=== PATIENT | male | born 1955 | race African-American/Black ===

== ENCOUNTER 2016-09-14 06:43 | Emergency (ER) | payer MEDICAID ==
[~2016-09-14] VITALS: Ht 170.2 cm; Wt 73.0 kg
[~2016-09-14 06:43] MED LIST: ACET1TAB12 PO; ASPI-1159 PO; CLON0.1T PO; IBUP-1510 PO; IBUPROFEN 600 MG TAB; IPRA0.2S51 NEB; KEPP500 PO; LORA1TAB PO; ONDA4TAB5 PO; PHEN100C4 PO; TRAM50TA3 PO
[2016-09-14] MEDS ORDERED: SODIUM CHLORIDE 0.9% 1,000 ML IV ONE (07:15)
[2016-09-14 07:48] LABS: HEMATOCRIT. 36.9 % (42.0-52.0); HEMOGLOBIN. 12.9 g/dL (14.0-18.0); MEAN CORPUSCULAR HEMOGLOBIN 33.8 pg (28.0-32.0); MEAN CORPUSCULAR VOLUME 96.9 fL (80.0-94.0); MEAN PLATELET VOLUME 6.5 fl (7.4-10.4); PLATELET 287 x1000/uL (130-400); RED BLOOD CELL COUNT 3.81 mill/uL (4.7-6.1); RED CELL DISTRIBUTION WIDTH 13.3 % (11.6-14.6)
[2016-09-14 07:57] LABS: CHLORIDE 100 mEq/L (98-107)
[2016-09-14 08:06] LABS: CARBON DIOXIDE 27 mEq/L (21-32)
[2016-09-14 08:43] LABS: PLATELET ESTIMATE NORMAL
[2016-09-14 08:56] LABS: GLUCOSE URINE NEGATIVE (NEGATIVE); KETONES URINE NEGATIVE (NEGATIVE); LEUKOCYTE ESTERASE URINE NEGATIVE (NEGATIVE); NITRITE URINE NEGATIVE (NEGATIVE); OCCULT BLOOD URINE TRACE (NEGATIVE); PROTEIN URINE NEGATIVE (NEGATIVE); SPECIFIC GRAVITY URINE 1.007 (1.005-1.030); UROBILINOGEN URINE 0.2 E.U./dL (0.2-1.0)
[2016-09-14 09:08] LABS: CLARITY URINE CLEAR (CLEAR); COLOR URINE YELLOW (YELLOW)
[2016-09-14 11:30] VITALS: BP 107/63
== END 2016-09-14 12:08 | disposition home or self-care (01) ==
LOC: ER 06:57
DX: R53.1 Weakness (principal); R05 Cough; E07.9 Disorder of thyroid, unspecified; I10 Essential (primary) hypertension; Z89.612 Acquired absence of left leg above knee; Z79.82 Long term (current) use of aspirin
CPT/HCPCS: 36415; 80053; 81001; 85025; 93005; 96360; 99285; J7030; Z7610

== ENCOUNTER 2016-09-19 20:22 | Inpatient (IN) | payer MEDICAID ==
[~2016-09-19] VITALS: Ht 167.6 cm; Wt 68.0 kg
[2016-09-19] MEDS ORDERED: SODIUM CHLORIDE 0.9% 1000ML BAG (SEPSIS BOLUS) IV ONE (21:15)
[2016-09-19 21:30] LABS: BG BASE EXCESS 3.5 mmol/L (-2.0-2.0); BG CARBOXYHEMOGLOBIN 0.2 % (0.5-1.5); BG DEOXYHEMOGLOBIN 3.5 % (0.0-5.0); BG FRACTION INSPIRED OXYGEN 60; BG HCO3 ACT 28.6 mmol/L (22.0-26.0); BG OXYGEN SATURATION 96.5 % (92.0-98.5); BG OXYHEMOGLOBIN 96.3 % (94.0-97.0); BG PCO2 45.2 mmHg (35.0-45.0); BG PH 7.419 (7.350-7.450); BG PO2 90.3 mmHg (75.0-100.0); BG SAMPLE SITE LEFT RADIAL; BG TOTAL HEMOGLOBIN 13.5 g/dL (12.0-18.0); BG VENT MODE MASK - NRB
[2016-09-19 21:35] LABS: HEMOGLOBIN. 12.8 g/dL (14.0-18.0); MEAN CORPUSCULAR HEMOGLOBIN 33.5 pg (28.0-32.0); MEAN CORPUSCULAR VOLUME 96.4 fL (80.0-94.0); MEAN PLATELET VOLUME 6.3 fl (7.4-10.4); PLATELET 289 x1000/uL (130-400); RED BLOOD CELL COUNT 3.83 mill/uL (4.7-6.1); RED CELL DISTRIBUTION WIDTH 13.4 % (11.6-14.6)
[2016-09-19 21:40] LABS: INR 1.1; PROTHROMBIN TIME 11.2 sec
[2016-09-19 21:49] LABS: CARBON DIOXIDE 31 mEq/L (21-32); CHLORIDE 91 mEq/L (98-107); TROPONIN I < 0.02 ng/mL (0.00-0.04)
[2016-09-19 22:09] LABS: PLATELET ESTIMATE NORMAL
[2016-09-19] MEDS ORDERED: MORPHINE SULFATE 4 MG/ML CPJ (NOT FOR IM USE) IV ONE (22:15)
[2016-09-19] MEDS ORDERED: ONDANSETRON HCL 4MG/2ML VIAL IV ONE (22:15)
[2016-09-19 22:38] LABS: CLARITY URINE CLEAR (CLEAR); COLOR URINE YELLOW (YELLOW); GLUCOSE URINE NEGATIVE (NEGATIVE); KETONES URINE NEGATIVE (NEGATIVE); LEUKOCYTE ESTERASE URINE NEGATIVE (NEGATIVE); NITRITE URINE NEGATIVE (NEGATIVE); OCCULT BLOOD URINE TRACE (NEGATIVE); PROTEIN URINE NEGATIVE (NEGATIVE); SPECIFIC GRAVITY URINE 1.008 (1.005-1.030); UROBILINOGEN URINE 0.2 E.U./dL (0.2-1.0)
[2016-09-19] MEDS ORDERED: LEVOFLOXACIN 500MG PREMIX 100 ML IV ONE (23:45)
[2016-09-19] MEDS ORDERED: METRONIDAZOLE 500 MG PREMIX 100 ML IV ONE (23:45)
[2016-09-20] VITALS (7 sets, daily range): BP systolic 98–114; BP diastolic 61–72
[2016-09-20] MEDS ORDERED: ACETAMINOPHEN 325MG TABLET PO PRN ×2 (05:15→08:15)
[2016-09-20] MEDS ORDERED: MAGNESIUM CITRATE 300ML SOLUTION PO SCH (05:15)
[2016-09-20] MEDS ORDERED: MAGNESIUM/ALUMINUM HYDROXIDE/SIMETHICONE 30ML UDC PO PRN (08:15)
[2016-09-20] MEDS ORDERED: CLONIDINE 0.1MG TABLET PO PRN ×2 (08:15)
[2016-09-20] MEDS ORDERED: HYDROCODONE/ACETAMINOPHEN 5/325MG TABLET PO PRN (08:15)
[2016-09-20] MEDS ORDERED: IPRATROPIUM/ALBUTEROL 0.5-3(2.5)MG/3ML NEB INH PRN (08:15)
[2016-09-20] MEDS ORDERED: ACETAMINOPHEN WITH CODEINE 300/30MG TABLET PO SCH (08:15)
[2016-09-20] MEDS ORDERED: ACETAMINOPHEN 650MG/20.3ML UDC GT PRN (08:15)
[2016-09-20] MEDS ORDERED: TRAMADOL 50MG TABLET PO PRN (08:15)
[2016-09-20] MEDS ORDERED: ACETAMINOPHEN 650MG SUPP PR PRN (08:15)
[2016-09-20] MEDS ORDERED: ONDANSETRON HCL 4MG TABLET PO PRN (08:15)
[2016-09-20] MEDS ORDERED: NA PHOS,M-B/NA PHOS,DI-BA ENEMA 118ML PR PRN (08:15)
[2016-09-20] MEDS ORDERED: DIPHENHYDRAMINE 50MG/ML VIAL IV PRN (08:15)
[2016-09-20] MEDS ORDERED: IPRATROPIUM BROMIDE (0.02%) 0.5MG/2.5ML NEB HHN PRN (08:15)
[2016-09-20] MEDS ORDERED: IBUPROFEN 800MG TABLET PO SCH (08:15)
[2016-09-20] MEDS: ASPIRIN 81MG EC TABLET PO SCH (09:12)
[2016-09-20] MEDS: PHENYTOIN SODIUM EXTENDED 100MG CAPSULE PO SCH ×3 (09:12→18:00)
[2016-09-20] MEDS: LORAZEPAM 1MG TABLET PO SCH ×3 (09:13→18:42)
[2016-09-20] MEDS: LEVETIRACETAM 500MG TABLET PO SCH ×2 (09:13→18:00)
[2016-09-20 09:26] LABS: HEMATOCRIT. 36.4 % (42.0-52.0); HEMOGLOBIN. 12.5 g/dL (14.0-18.0); MEAN CORPUSCULAR HEMOGLOBIN 33.4 pg (28.0-32.0); MEAN CORPUSCULAR VOLUME 96.9 fL (80.0-94.0); MEAN PLATELET VOLUME 6.4 fl (7.4-10.4); PLATELET 285 x1000/uL (130-400); RED BLOOD CELL COUNT 3.75 mill/uL (4.7-6.1); RED CELL DISTRIBUTION WIDTH 13.4 % (11.6-14.6)
[2016-09-20 09:46] LABS: CARBON DIOXIDE 28 mEq/L (21-32); CHLORIDE 98 mEq/L (98-107)
[2016-09-20] MEDS: SODIUM CHLORIDE 0.45% 1,000 ML IV SCH ×2 (10:45→22:40)
[2016-09-20] MEDS: SODIUM CHLORIDE 0.9% INJ 3ML FLUSH IVF SCH ×2 (15:32→22:39)
[2016-09-20 17:54] LABS: PLATELET ESTIMATE NORMAL
[2016-09-20] MEDS ORDERED: MAGNESIUM CITRATE 300ML SOLUTION PO NR (22:00)
[2016-09-21] VITALS (7 sets, daily range): BP systolic 98–120; BP diastolic 56–71
[2016-09-21] MEDS: LORAZEPAM 1MG TABLET PO SCH ×4 (06:00→17:42)
[2016-09-21] MEDS: SODIUM CHLORIDE 0.9% INJ 3ML FLUSH IVF SCH ×2 (06:45→17:44)
[2016-09-21 07:21] LABS: HEMATOCRIT. 36.1 % (42.0-52.0); HEMOGLOBIN. 12.4 g/dL (14.0-18.0); MEAN CORPUSCULAR HEMOGLOBIN 33.4 pg (28.0-32.0); MEAN CORPUSCULAR VOLUME 96.9 fL (80.0-94.0); MEAN PLATELET VOLUME 6.6 fl (7.4-10.4); PLATELET 289 x1000/uL (130-400); RED BLOOD CELL COUNT 3.72 mill/uL (4.7-6.1); RED CELL DISTRIBUTION WIDTH 13.6 % (11.6-14.6)
[2016-09-21 07:31] LABS: CHLORIDE 101 mEq/L (98-107)
[2016-09-21 07:40] LABS: CARBON DIOXIDE 29 mEq/L (21-32); HDL CHOLESTEROL 81 mg/dL (40-59); LDL CHOLESTEROL 74 mg/dL (5-100)
[2016-09-21] MEDS: LEVETIRACETAM 500MG TABLET PO SCH ×2 (09:17→17:42)
[2016-09-21] MEDS: PHENYTOIN SODIUM EXTENDED 100MG CAPSULE PO SCH ×3 (09:17→17:42)
[2016-09-21] MEDS: ASPIRIN 81MG EC TABLET PO SCH (09:18)
[2016-09-21 09:52] LABS: PLATELET ESTIMATE NORMAL
[2016-09-21] MEDS: SODIUM CHLORIDE 0.45% 1,000 ML IV SCH (10:54)
[2016-09-25] MEDS ORDERED: LORA1TAB PO (01:49)
[2016-09-25] MEDS ORDERED: HYDR12.529 PO (01:50)
[2016-09-25] MEDS ORDERED: AMLO10TA80 PO (01:52)
[2016-09-25] MEDS ORDERED: ATOR10TA69 PO (01:53)
[2016-09-25] MEDS ORDERED: PHEN125O2 PO ×2 (01:55→01:57)
[2016-09-25] MEDS ORDERED: DOCU250C69 PO (02:00)
[2016-09-25] MEDS ORDERED: DOCU-150 PO (02:00)
[2016-09-25] MEDS ORDERED: IPRA3AMP IH (02:07)
[2016-09-25] MEDS ORDERED: HYDR-523 PO (02:09)
[2016-09-25] MEDS ORDERED: IBUP-1636 PO (02:12)
[2016-09-25] MEDS ORDERED: ACET-2178 PO (02:18)
== END 2016-09-21 20:00 | DRG 254 ==
LOC: ER 20:22 → 6EST 23:36 → ENRESERV 09-20 00:14 → ER 09-20 01:44
PROVIDERS: ADMIT Family Medicine; ATTEND Family Medicine
DX: K59.00 Constipation, unspecified (principal); Z89.612 Acquired absence of left leg above knee; J44.9 Chronic obstructive pulmonary disease, unspecified; I10 Essential (primary) hypertension; G40.909 Epilepsy, unspecified, not intractable, without status epilepticus; Z74.01 Bed confinement status; Z79.82 Long term (current) use of aspirin; Z79.899 Other long term (current) drug therapy
CPT/HCPCS: 36415; 36600; 71010; 71250; 74000; 74176; 80048; 80053; 80061; 81001; 82375; 82805; 82962; 83605; 83690; 83880; 84484; 85025; 85610; 85730; 86850; 86900; 87040; 87086; 93005; 96361; 96374; 96375; 99291; J1956; J2270; J2405; J3490; J7030

== ENCOUNTER 2016-10-10 03:31 | Emergency (ER) | payer MEDICAID ==
[~2016-10-10] VITALS: Ht 167.6 cm; Wt 65.9 kg
[~2016-10-10 03:31] MED LIST changes: +ACET-2178 PO; +AMLO10TA80 PO; +ATOR10TA69 PO; +DOCU-150 PO; +DOCU250C69 PO; +HYDR-523 PO; +HYDR12.529 PO; +IBUP-1636 PO; -IBUPROFEN 600 MG TAB; +IPRA3AMP IH; +PHEN125O2 PO
[2016-10-10] MEDS ORDERED: ACETAMINOPHEN 325MG TABLET PO ONE (04:00)
[2016-10-10 04:10] VITALS: BP 124/78
== END 2016-10-10 05:03 | disposition home or self-care (01) ==
LOC: ER 03:31
DX: M25.519 Pain in unspecified shoulder (principal); K21.9 Gastro-esophageal reflux disease without esophagitis; I10 Essential (primary) hypertension; Z79.82 Long term (current) use of aspirin; R56.9 Unspecified convulsions; Z89.622 Acquired absence of left hip joint
CPT/HCPCS: 93005; 99283; Z7610

== ENCOUNTER 2016-10-14 03:58 | Emergency (ER) | payer MEDICAID, OTHER ==
[~2016-10-14] VITALS: Ht 165.1 cm; Wt 69.0 kg
[2016-10-14 09:30] VITALS: BP 119/79
== END 2016-10-14 10:10 | disposition home or self-care (01) ==
LOC: ER 03:58
DX: R40.4 Transient alteration of awareness (principal); I10 Essential (primary) hypertension; Z79.82 Long term (current) use of aspirin
CPT/HCPCS: 99283; A4315

== ENCOUNTER 2016-10-14 10:32 | Emergency (ER) | payer MEDICAID, OTHER ==
[~2016-10-14] VITALS: Ht 152.4 cm; Wt 69.0 kg
[2016-10-14 11:18] LABS: CHLORIDE 100 mEq/L (98-107)
[2016-10-14 11:19] LABS: HEMATOCRIT. 38.4 % (42.0-52.0); MEAN CORPUSCULAR HEMOGLOBIN 32.6 pg (28.0-32.0); MEAN CORPUSCULAR VOLUME 96.3 fL (80.0-94.0); PLATELET 411 x1000/uL (130-400); RED BLOOD CELL COUNT 3.98 mill/uL (4.7-6.1); RED CELL DISTRIBUTION WIDTH 14.3 % (11.6-14.6)
[2016-10-14 11:28] LABS: CARBON DIOXIDE 32 mEq/L (21-32); ETHANOL BLOOD < 10 mg/dL
[2016-10-14 12:16] LABS: PLATELET ESTIMATE INCREASED
[2016-10-14 16:35] VITALS: BP 141/86
== END 2016-10-14 17:10 | disposition home or self-care (01) ==
LOC: ER 11:51
DX: R40.4 Transient alteration of awareness (principal); I10 Essential (primary) hypertension; Z79.82 Long term (current) use of aspirin
CPT/HCPCS: 36415; 70450; 71010; 80053; 82962; 85025; 93005; 99285; G0482; Z7610; A4315

== ENCOUNTER 2016-11-02 21:34 | Inpatient (IN) | payer MEDICAID ==
[~2016-11-02] VITALS: Ht 167.6 cm; Wt 64.0 kg
[~2016-11-02 21:34] MED LIST changes: -IBUP-1510 PO; +IBUP-2030 PO; -IPRA3AMP IH; +IPRA3AMP9 IH
[2016-11-02] MEDS ORDERED: ONDANSETRON HCL 4MG/2ML VIAL IV STA (22:36)
[2016-11-02] MEDS ORDERED: SODIUM CHLORIDE 0.9% 1,000 ML IV ONE (22:36)
[2016-11-02] MEDS ORDERED: LORAZEPAM 2MG/ML CPJ IV ONE (22:45)
[2016-11-02 23:08] LABS: BASOPHILS % 0.2 % (0.0-2.0); EOSINOPHILS % 0.2 % (0.0-5.0); HEMATOCRIT. 35.4 % (42.0-52.0); HEMOGLOBIN. 12.2 g/dL (14.0-18.0); LYMPHOCYTES % 5.9 % (20.0-50.0); MEAN CORPUSCULAR HEMOGLOBIN 32.8 pg (28.0-32.0); MEAN PLATELET VOLUME 6.1 fl (7.4-10.4); MONOCYTES % 8.9 % (2.0-8.0); NEUTROPHILS % 84.8 % (40.0-76.0); PLATELET 367 x1000/uL (130-400); RED BLOOD CELL COUNT 3.73 mill/uL (4.7-6.1); RED CELL DISTRIBUTION WIDTH 14.5 % (11.6-14.6)
[2016-11-02 23:13] LABS: CHLORIDE 86 mEq/L (98-107)
[2016-11-02 23:17] LABS: CARBON DIOXIDE 26 mEq/L (21-32)
[2016-11-02] MEDS ORDERED: SODIUM CHLORIDE 0.9% 1,000 ML IV SCH (23:21)
[2016-11-02 23:24] LABS: TROPONIN I < 0.02 ng/mL (0.00-0.04)
[2016-11-03] VITALS (41 sets, daily range): BP systolic 49–139; BP diastolic 33–104
[2016-11-03] MEDS: LORAZEPAM 2MG/ML CPJ IV PRN ×2 (05:30→20:54)
[2016-11-03] MEDS ORDERED: ACETAMINOPHEN WITH CODEINE 300/30MG TABLET PO PRN (06:45)
[2016-11-03] MEDS ORDERED: CLONIDINE 0.1MG TABLET PO PRN ×2 (06:45→08:15)
[2016-11-03] MEDS ORDERED: HYDROCODONE/ACETAMINOPHEN 5/325MG TABLET PO PRN ×2 (06:45→08:15)
[2016-11-03] MEDS ORDERED: ONDANSETRON HCL 4MG/2ML VIAL IV PRN (07:00)
[2016-11-03] MEDS ORDERED: ACETAMINOPHEN 325MG TABLET PO PRN (07:00)
[2016-11-03] MEDS ORDERED: NA PHOS,M-B/NA PHOS,DI-BA ENEMA 118ML PR PRN (08:15)
[2016-11-03] MEDS ORDERED: DOCUSATE SODIUM 100MG CAPSULE PO PRN (08:15)
[2016-11-03] MEDS ORDERED: HYDROCODONE/ACETAMINOPHEN 10/325MG TABLET PO PRN (08:15)
[2016-11-03] MEDS ORDERED: IPRATROPIUM/ALBUTEROL 0.5-3(2.5)MG/3ML NEB INH PRN (08:15)
[2016-11-03] MEDS: LEVETIRACETAM 500MG TABLET PO SCH ×2 (08:36→18:43)
[2016-11-03] MEDS: ASPIRIN 81MG EC TABLET PO SCH (08:37)
[2016-11-03] MEDS: METOPROLOL TARTRATE 50MG TABLET PO SCH ×2 (08:37→21:00)
[2016-11-03] MEDS: DOCUSATE SODIUM 100MG CAPSULE PO SCH (08:37)
[2016-11-03] MEDS: AMLODIPINE 10MG TABLET PO SCH (08:38)
[2016-11-03] MEDS ORDERED: HYDROCHLOROTHIAZIDE 12.5MG CAPSULE PO SCH (09:00)
[2016-11-03] MEDS ORDERED: POTASSIUM CHLORIDE INJ 40 MEQ in DEXT 5% WATER 500 ML IV SCH (10:00)
[2016-11-03] MEDS ORDERED: PHENYTOIN SODIUM 1,000 MG in SODIUM CHLORIDE 0.9% 100 ML IV NR (11:00)
[2016-11-03] MEDS: POTASSIUM CHLORIDE INJ 40 MEQ in DEXT 5% WATER 500 ML IV SCH ×3 (11:06→16:27)
[2016-11-03] MEDS: SODIUM CHLORIDE 0.9% 1,000 ML IV SCH ×2 (11:07→18:47)
[2016-11-03 11:13] LABS: CLARITY URINE CLEAR (CLEAR); COLOR URINE YELLOW (YELLOW); GLUCOSE URINE NEGATIVE (NEGATIVE); KETONES URINE NEGATIVE (NEGATIVE); LEUKOCYTE ESTERASE URINE NEGATIVE (NEGATIVE); NITRITE URINE NEGATIVE (NEGATIVE); OCCULT BLOOD URINE 2+ (NEGATIVE); PH URINE 7.5 (4.5-8.0); PROTEIN URINE 1+ (NEGATIVE); SPECIFIC GRAVITY URINE 1.011 (1.005-1.030); UROBILINOGEN URINE 0.2 E.U./dL (0.2-1.0)
[2016-11-03 11:25] LABS: SODIUM URINE RANDOM 107 mEq/L
[2016-11-03 11:31] LABS: *AMPHETAMINES SCREEN URINE NEGATIVE (NEGATIVE); *BARBITURATES SCREEN URINE NEGATIVE (NEGATIVE); *BENZODIAZEPINES SCREEN URINE PRESUMTIVE POSITIVE (NEGATIVE); *COCAINE SCREEN URINE NEGATIVE (NEGATIVE); CANNABINOID URINE SCREEN NEGATIVE (NEGATIVE); METHADONE URINE SCREEN NEGATIVE (NEGATIVE); OPIATES URINE SCREEN NEGATIVE (NEGATIVE); PHENCYCLIDINE URINE SCREEN NEGATIVE (NEGATIVE)
[2016-11-03] MEDS ORDERED: SODIUM CHLORIDE 0.9% 250 ML IV ONE (14:15)
[2016-11-03 16:29] LABS: TROPONIN I < 0.02 ng/mL (0.00-0.04)
[2016-11-03] MEDS ORDERED: SODIUM CHLORIDE 0.9% 500 ML IV NR (16:30)
[2016-11-03 16:33] LABS: CREATINE KINASE 2650 IU/L (39-308)
[2016-11-03] MEDS: NOREPINEPHRINE 4 MG in DEXTROSE 5% WATER 250 ML IV PRN (17:44)
[2016-11-03] MEDS ORDERED: POTASSIUM CHLORIDE 20MEQ TABLET SR PO NR (18:30)
[2016-11-03] MEDS: DIPHENHYDRAMINE 50MG/ML VIAL IV PRN (20:54)
[2016-11-03] MEDS: ATORVASTATIN CALCIUM 10MG TABLET PO SCH (21:00)
[2016-11-03] MEDS ORDERED: DOPAMINE 400MG PREMIX 250 ML IV PRN (23:00)
[2016-11-04] VITALS (94 sets, daily range): BP systolic 70–168; BP diastolic 28–117
[2016-11-04 00:17] LABS: TROPONIN I < 0.02 ng/mL (0.00-0.04)
[2016-11-04 00:22] LABS: CREATINE KINASE 2596 IU/L (39-308)
[2016-11-04] MEDS: LORAZEPAM 2MG/ML CPJ IV PRN ×6 (00:34→23:33)
[2016-11-04] MEDS: DIPHENHYDRAMINE 50MG/ML VIAL IV PRN (01:53)
[2016-11-04] MEDS: PIPERACILLIN/TAZ 3.375G PREMIX 50 ML IV SCH ×3 (02:09→17:29)
[2016-11-04] MEDS: VANCOMYCIN 1 G PREMIX 200 ML IV SCH ×2 (02:09→16:09)
[2016-11-04 05:45] LABS: BASOPHILS % 0.4 % (0.0-2.0); EOSINOPHILS % 0.4 % (0.0-5.0); HEMATOCRIT. 31.6 % (42.0-52.0); HEMOGLOBIN. 10.9 g/dL (14.0-18.0); LYMPHOCYTES % 18.2 % (20.0-50.0); MEAN CORPUSCULAR HEMOGLOBIN 32.8 pg (28.0-32.0); MEAN CORPUSCULAR VOLUME 95.1 fL (80.0-94.0); MEAN PLATELET VOLUME 6.3 fl (7.4-10.4); MONOCYTES % 11.9 % (2.0-8.0); NEUTROPHILS % 69.1 % (40.0-76.0); PLATELET 350 x1000/uL (130-400); RED BLOOD CELL COUNT 3.32 mill/uL (4.7-6.1); RED CELL DISTRIBUTION WIDTH 14.3 % (11.6-14.6)
[2016-11-04 06:42] LABS: CARBON DIOXIDE 28 mEq/L (21-32); CHLORIDE 100 mEq/L (98-107); HDL CHOLESTEROL 89 mg/dL (40-59); LDL CHOLESTEROL 74 mg/dL (5-100)
[2016-11-04 07:04] LABS: CREATINE KINASE 2340 IU/L (39-308)
[2016-11-04] MEDS: NOREPINEPHRINE 4 MG in DEXTROSE 5% WATER 250 ML IV PRN (08:21)
[2016-11-04] MEDS: METOPROLOL TARTRATE 50MG TABLET PO SCH ×2 (09:00→21:00)
[2016-11-04] MEDS: AMLODIPINE 10MG TABLET PO SCH (09:00)
[2016-11-04 10:15] LABS: BG BASE EXCESS 0.4 mmol/L (-2.0-2.0); BG CARBOXYHEMOGLOBIN 0.2 % (0.5-1.5); BG DEOXYHEMOGLOBIN 4.2 % (0.0-5.0); BG FRACTION INSPIRED OXYGEN 21; BG HCO3 ACT 24.9 mmol/L (22.0-26.0); BG METHEMOGLOBIN 0.4 % (0.0-1.5); BG OXYGEN SATURATION 95.8 % (92.0-98.5); BG OXYHEMOGLOBIN 95.2 % (94.0-97.0); BG PCO2 39.3 mmHg (35.0-45.0); BG PH 7.419 (7.350-7.450); BG PO2 83.6 mmHg (75.0-100.0); BG SAMPLE SITE RIGHT BRACHIAL; BG TOTAL HEMOGLOBIN 12.1 g/dL (12.0-18.0); BG VENT MODE ROOM AIR
[2016-11-04] MEDS: DOCUSATE SODIUM 100MG CAPSULE PO SCH (10:18)
[2016-11-04] MEDS: ASPIRIN 81MG EC TABLET PO SCH (10:18)
[2016-11-04] MEDS: LEVETIRACETAM 500MG TABLET PO SCH ×2 (10:18→17:29)
[2016-11-04] MEDS: SODIUM CHLORIDE 0.9% 1,000 ML IV SCH (12:15)
[2016-11-04 12:19] LABS: HEPATITIS B SURFACE ANTIGEN NEGATIVE
[2016-11-04] MEDS ORDERED: POTASSIUM CHLORIDE INJ 40 MEQ in DEXT 5% WATER 250 ML IV NR (12:30)
[2016-11-04 12:47] LABS: HEPATITIS B CORE AB IGM NEGATIVE
[2016-11-04] MEDS: ATORVASTATIN CALCIUM 10MG TABLET PO SCH ×2 (21:00→21:28)
[2016-11-04] MEDS ORDERED: LEVETIRACETAM 750 MG in SODIUM CHLORIDE 0.9% 100 ML IV NR (21:00)
[2016-11-04] MEDS ORDERED: PHENYTOIN SODIUM EXTENDED 100MG CAPSULE PO SCH (21:00)
[2016-11-04] MEDS: PHENYTOIN SODIUM 300 MG in SODIUM CHLORIDE 0.9% 50 ML IV SCH (21:28)
[2016-11-04] MEDS: LEVETIRACETAM 1,000 MG in SODIUM CHLORIDE 0.9% 100 ML IV SCH (22:41)
[2016-11-05] VITALS (101 sets, daily range): BP systolic 81–160; BP diastolic 56–113
[2016-11-05] MEDS: LORAZEPAM 2MG/ML CPJ IV PRN ×4 (01:27→09:05)
[2016-11-05] MEDS: VANCOMYCIN 1 G PREMIX 200 ML IV SCH ×2 (01:27→13:15)
[2016-11-05] MEDS: PIPERACILLIN/TAZ 3.375G PREMIX 50 ML IV SCH ×3 (01:27→17:29)
[2016-11-05] MEDS: SODIUM CHLORIDE 0.9% 1,000 ML IV SCH ×2 (01:28→17:29)
[2016-11-05 05:44] LABS: CARBON DIOXIDE 23 mEq/L (21-32); CHLORIDE 104 mEq/L (98-107)
[2016-11-05 07:27] LABS: CREATINE KINASE 1116 IU/L (39-308)
[2016-11-05] MEDS: METOPROLOL TARTRATE 50MG TABLET PO SCH ×2 (08:28→20:52)
[2016-11-05] MEDS: DOCUSATE SODIUM 100MG CAPSULE PO SCH (08:28)
[2016-11-05] MEDS: AMLODIPINE 10MG TABLET PO SCH (08:28)
[2016-11-05] MEDS: ASPIRIN 81MG EC TABLET PO SCH (08:48)
[2016-11-05 08:55] LABS: BASOPHILS % 1.4 % (0.0-2.0); EOSINOPHILS % 3.3 % (0.0-5.0); HEMOGLOBIN. 10.7 g/dL (14.0-18.0); LYMPHOCYTES % 10.5 % (20.0-50.0); MEAN CORPUSCULAR HEMOGLOBIN 33.2 pg (28.0-32.0); MEAN CORPUSCULAR VOLUME 96.2 fL (80.0-94.0); MEAN PLATELET VOLUME 6.3 fl (7.4-10.4); MONOCYTES % 10.5 % (2.0-8.0); NEUTROPHILS % 74.3 % (40.0-76.0); PLATELET 322 x1000/uL (130-400); RED BLOOD CELL COUNT 3.22 mill/uL (4.7-6.1); RED CELL DISTRIBUTION WIDTH 14.4 % (11.6-14.6)
[2016-11-05] MEDS: LEVETIRACETAM 1,000 MG in SODIUM CHLORIDE 0.9% 100 ML IV SCH (09:39)
[2016-11-05] MEDS ORDERED: ZONISAMIDE 100MG CAPSULE PO SCH (11:00)
[2016-11-05] MEDS: PROPOFOL 10MG/ML 100ML 100 ML IV SCH ×2 (11:15→20:51)
[2016-11-05] MEDS ORDERED: ETOMIDATE 2MG/ML 10ML VIAL IV ONE (12:00)
[2016-11-05] MEDS ORDERED: SUCCINYLCHOLINE CHLORIDE 200MG/10ML VIAL IV ONE (12:00)
[2016-11-05 13:23] LABS: BG CARBOXYHEMOGLOBIN 0.3 % (0.5-1.5); BG DEOXYHEMOGLOBIN 0.7 % (0.0-5.0); BG FRACTION INSPIRED OXYGEN 50; BG HCO3 ACT 26.1 mmol/L (22.0-26.0); BG METHEMOGLOBIN 0.3 % (0.0-1.5); BG OXYGEN SATURATION 99.3 % (92.0-98.5); BG OXYHEMOGLOBIN 98.7 % (94.0-97.0); BG PCO2 34.6 mmHg (35.0-45.0); BG PH 7.495 (7.350-7.450); BG PO2 202.3 mmHg (75.0-100.0); BG SAMPLE SITE RIGHT RADIAL; BG TIDAL VOLUME(mL) 500 mL; BG VENT MODE VENT - A/C; BG VENT RATE 12 set
[2016-11-05] MEDS: PHENYTOIN SODIUM 300 MG in SODIUM CHLORIDE 0.9% 50 ML IV SCH (20:51)
[2016-11-05] MEDS: ATORVASTATIN CALCIUM 10MG TABLET PO SCH (20:52)
[2016-11-05] MEDS: LEVETIRACETAM 1,500 MG in SODIUM CHLORIDE 0.9% 100 ML IV SCH (22:53)
[2016-11-06] VITALS (87 sets, daily range): BP systolic 84–156; BP diastolic 51–111
[2016-11-06] MEDS: PIPERACILLIN/TAZ 3.375G PREMIX 50 ML IV SCH ×3 (01:56→17:38)
[2016-11-06] MEDS: VANCOMYCIN 1 G PREMIX 200 ML IV SCH ×2 (01:56→14:58)
[2016-11-06] MEDS: PROPOFOL 10MG/ML 100ML 100 ML IV SCH (05:24)
[2016-11-06 05:43] LABS: BASOPHILS % 0.6 % (0.0-2.0); HEMATOCRIT. 27.5 % (42.0-52.0); HEMOGLOBIN. 9.6 g/dL (14.0-18.0); LYMPHOCYTES % 19.4 % (20.0-50.0); MEAN CORPUSCULAR HEMOGLOBIN 33.4 pg (28.0-32.0); MEAN CORPUSCULAR VOLUME 96.1 fL (80.0-94.0); MEAN PLATELET VOLUME 6.7 fl (7.4-10.4); MONOCYTES % 11.1 % (2.0-8.0); NEUTROPHILS % 63.9 % (40.0-76.0); PLATELET 307 x1000/uL (130-400); RED BLOOD CELL COUNT 2.87 mill/uL (4.7-6.1); RED CELL DISTRIBUTION WIDTH 14.3 % (11.6-14.6)
[2016-11-06] MEDS: SODIUM CHLORIDE 0.9% 1,000 ML IV SCH (05:51)
[2016-11-06 06:46] LABS: CARBON DIOXIDE 25 mEq/L (21-32); CHLORIDE 106 mEq/L (98-107); CREATINE KINASE 445 IU/L (39-308)
[2016-11-06] MEDS: AMLODIPINE 10MG TABLET PO SCH (09:00)
[2016-11-06] MEDS: METOPROLOL TARTRATE 50MG TABLET PO SCH ×2 (09:00→21:00)
[2016-11-06] MEDS: DOCUSATE SODIUM 100MG CAPSULE PO SCH (09:00)
[2016-11-06 09:37] LABS: BG BASE EXCESS 1.1 mmol/L (-2.0-2.0); BG CARBOXYHEMOGLOBIN 0.3 % (0.5-1.5); BG DEOXYHEMOGLOBIN 0.9 % (0.0-5.0); BG FRACTION INSPIRED OXYGEN 40; BG HCO3 ACT 24.2 mmol/L (22.0-26.0); BG METHEMOGLOBIN 0.3 % (0.0-1.5); BG OXYGEN SATURATION 99.1 % (92.0-98.5); BG OXYHEMOGLOBIN 98.5 % (94.0-97.0); BG PCO2 33.1 mmHg (35.0-45.0); BG PH 7.482 (7.350-7.450); BG PO2 150.4 mmHg (75.0-100.0); BG SAMPLE SITE RIGHT RADIAL; BG TIDAL VOLUME(mL) 500 mL; BG TOTAL HEMOGLOBIN 10.6 g/dL (12.0-18.0); BG VENT MODE VENT - A/C; BG VENT RATE 12 set
[2016-11-06] MEDS: LEVETIRACETAM 1,500 MG in SODIUM CHLORIDE 0.9% 100 ML IV SCH ×2 (09:51→22:34)
[2016-11-06] MEDS: ZONISAMIDE 100MG CAPSULE PO SCH (09:51)
[2016-11-06] MEDS: ASPIRIN 81MG EC TABLET PO SCH (09:51)
[2016-11-06] MEDS ORDERED: DOCUSATE SODIUM SUGAR FREE 100MG/10ML UDC GT PRN (10:00)
[2016-11-06] MEDS ORDERED: POTASSIUM CHLORIDE 20MEQ/PACKET PO NR (10:40)
[2016-11-06] MEDS ORDERED: PHENYTOIN SODIUM 700 MG in SODIUM CHLORIDE 0.9% 100 ML IV NR (11:00)
[2016-11-06] MEDS: ENOXAPARIN 40MG/0.4ML SYR SUBCUT SCH (11:11)
[2016-11-06] MEDS: IPRATROPIUM/ALBUTEROL 0.5-3(2.5)MG/3ML NEB HHN SCH ×2 (11:50→20:36)
[2016-11-06] MEDS: PROPOFOL 10MG/ML 100ML 100 ML IV PRN ×2 (13:10→17:38)
[2016-11-06] MEDS: PHENYTOIN SODIUM 300 MG in SODIUM CHLORIDE 0.9% 50 ML IV SCH (21:56)
[2016-11-07] VITALS (68 sets, daily range): BP systolic 84–146; BP diastolic 34–86
[2016-11-07] MEDS: IPRATROPIUM/ALBUTEROL 0.5-3(2.5)MG/3ML NEB HHN SCH ×4 (01:49→20:07)
[2016-11-07] MEDS: SODIUM CHLORIDE 0.9% 1,000 ML IV SCH ×2 (01:58→20:37)
[2016-11-07] MEDS: PROPOFOL 10MG/ML 100ML 100 ML IV PRN ×2 (02:06→16:55)
[2016-11-07] MEDS: VANCOMYCIN 1 G PREMIX 200 ML IV SCH ×2 (02:06→14:21)
[2016-11-07] MEDS: PIPERACILLIN/TAZ 3.375G PREMIX 50 ML IV SCH ×3 (02:07→17:01)
[2016-11-07 06:12] LABS: HEMOGLOBIN. 10.3 g/dL (14.0-18.0); LYMPHOCYTES % 14.3 % (20.0-50.0); MEAN CORPUSCULAR HEMOGLOBIN 32.8 pg (28.0-32.0); MEAN CORPUSCULAR VOLUME 95.4 fL (80.0-94.0); MEAN PLATELET VOLUME 6.5 fl (7.4-10.4); MONOCYTES % 12.9 % (2.0-8.0); NEUTROPHILS % 66.8 % (40.0-76.0); PLATELET 336 x1000/uL (130-400); RED BLOOD CELL COUNT 3.15 mill/uL (4.7-6.1); RED CELL DISTRIBUTION WIDTH 14.4 % (11.6-14.6)
[2016-11-07 06:49] LABS: CARBON DIOXIDE 24 mEq/L (21-32); CHLORIDE 107 mEq/L (98-107)
[2016-11-07 06:52] LABS: CREATINE KINASE 242 IU/L (39-308)
[2016-11-07 07:08] LABS: BG BASE EXCESS 0.1 mmol/L (-2.0-2.0); BG CARBOXYHEMOGLOBIN 0.4 % (0.5-1.5); BG METHEMOGLOBIN 0.3 % (0.0-1.5); BG OXYHEMOGLOBIN 97.3 % (94.0-97.0); BG PCO2 41.6 mmHg (35.0-45.0); BG PH 7.397 (7.350-7.450); BG PO2 113.1 mmHg (75.0-100.0); BG SAMPLE SITE RIGHT BRACHIAL; BG TIDAL VOLUME(mL) 450 mL; BG TOTAL HEMOGLOBIN 13.6 g/dL (12.0-18.0); BG VENT MODE VENT - A/C; BG VENT RATE 10 set
[2016-11-07] MEDS: DOCUSATE SODIUM 100MG CAPSULE PO SCH (09:00)
[2016-11-07] MEDS ORDERED: POTASSIUM CHLORIDE 20MEQ/PACKET NG NR (09:15)
[2016-11-07] MEDS: ASPIRIN 81MG EC TABLET PO SCH (09:27)
[2016-11-07] MEDS: METOPROLOL TARTRATE 50MG TABLET PO SCH ×2 (09:27→21:00)
[2016-11-07] MEDS: AMLODIPINE 10MG TABLET PO SCH (09:27)
[2016-11-07] MEDS: PANTOPRAZOLE SODIUM 40 MG/VIAL IV SCH (09:27)
[2016-11-07] MEDS: ZONISAMIDE 100MG CAPSULE PO SCH (09:27)
[2016-11-07] MEDS: ENOXAPARIN 40MG/0.4ML SYR SUBCUT SCH (09:28)
[2016-11-07] MEDS: LEVETIRACETAM 1,500 MG in SODIUM CHLORIDE 0.9% 100 ML IV SCH ×2 (09:29→21:43)
[2016-11-07 15:31] LABS: HEPATITIS A AB IGM NEGATIVE (NEGATIVE)
[2016-11-08] VITALS (62 sets, daily range): BP systolic 88–142; BP diastolic 57–94
[2016-11-08] MEDS: PROPOFOL 10MG/ML 100ML 100 ML IV PRN ×3 (01:09→17:56)
[2016-11-08] MEDS: VANCOMYCIN 1 G PREMIX 200 ML IV SCH (01:12)
[2016-11-08] MEDS: PIPERACILLIN/TAZ 3.375G PREMIX 50 ML IV SCH ×3 (01:12→17:56)
[2016-11-08] MEDS: IPRATROPIUM/ALBUTEROL 0.5-3(2.5)MG/3ML NEB HHN SCH ×4 (02:06→20:07)
[2016-11-08 05:57] LABS: BASOPHILS % 0.5 % (0.0-2.0); EOSINOPHILS % 4.6 % (0.0-5.0); HEMATOCRIT. 29.1 % (42.0-52.0); HEMOGLOBIN. 9.8 g/dL (14.0-18.0); LYMPHOCYTES % 13.7 % (20.0-50.0); MEAN CORPUSCULAR HEMOGLOBIN 32.6 pg (28.0-32.0); MEAN CORPUSCULAR VOLUME 96.5 fL (80.0-94.0); MEAN PLATELET VOLUME 6.4 fl (7.4-10.4); MONOCYTES % 11.9 % (2.0-8.0); NEUTROPHILS % 69.3 % (40.0-76.0); PLATELET 306 x1000/uL (130-400); RED BLOOD CELL COUNT 3.02 mill/uL (4.7-6.1); RED CELL DISTRIBUTION WIDTH 14.7 % (11.6-14.6)
[2016-11-08 06:48] LABS: CARBON DIOXIDE 26 mEq/L (21-32); CHLORIDE 112 mEq/L (98-107); CREATINE KINASE 256 IU/L (39-308)
[2016-11-08] MEDS: DOCUSATE SODIUM SUGAR FREE 100MG/10ML UDC NG SCH (08:49)
[2016-11-08] MEDS: AMLODIPINE 10MG TABLET PO SCH (08:50)
[2016-11-08] MEDS: METOPROLOL TARTRATE 50MG TABLET PO SCH ×2 (08:50→20:21)
[2016-11-08] MEDS: PANTOPRAZOLE SODIUM 40 MG/VIAL IV SCH (08:50)
[2016-11-08] MEDS: ENOXAPARIN 40MG/0.4ML SYR SUBCUT SCH (08:50)
[2016-11-08] MEDS: ASPIRIN 81MG EC TABLET PO SCH (08:50)
[2016-11-08] MEDS: ZONISAMIDE 100MG CAPSULE PO SCH (08:50)
[2016-11-08] MEDS: LEVETIRACETAM 1,500 MG in SODIUM CHLORIDE 0.9% 100 ML IV SCH ×2 (09:30→21:03)
[2016-11-08] MEDS ORDERED: POTASSIUM CHLORIDE 20MEQ/PACKET PO SCH (10:15)
[2016-11-08] MEDS: SODIUM CHLORIDE 0.9% 1,000 ML IV SCH (16:40)
[2016-11-08] MEDS: PHENYTOIN SODIUM 300 MG in SODIUM CHLORIDE 0.9% 50 ML IV SCH (20:21)
[2016-11-09] VITALS (90 sets, daily range): BP systolic 97–172; BP diastolic 55–105
[2016-11-09] MEDS: PIPERACILLIN/TAZ 3.375G PREMIX 50 ML IV SCH ×3 (01:16→17:01)
[2016-11-09] MEDS: IPRATROPIUM/ALBUTEROL 0.5-3(2.5)MG/3ML NEB HHN SCH ×4 (02:25→20:35)
[2016-11-09] MEDS: SODIUM CHLORIDE 0.9% 1,000 ML IV SCH ×2 (05:47→20:02)
[2016-11-09] MEDS: PROPOFOL 10MG/ML 100ML 100 ML IV PRN (05:47)
[2016-11-09 06:11] LABS: BASOPHILS % 0.8 % (0.0-2.0); HEMATOCRIT. 31.2 % (42.0-52.0); HEMOGLOBIN. 10.5 g/dL (14.0-18.0); LYMPHOCYTES % 16.2 % (20.0-50.0); MEAN CORPUSCULAR HEMOGLOBIN 32.7 pg (28.0-32.0); MEAN CORPUSCULAR VOLUME 97.1 fL (80.0-94.0); MEAN PLATELET VOLUME 6.6 fl (7.4-10.4); MONOCYTES % 14.1 % (2.0-8.0); NEUTROPHILS % 63.9 % (40.0-76.0); PLATELET 322 x1000/uL (130-400); RED BLOOD CELL COUNT 3.21 mill/uL (4.7-6.1); RED CELL DISTRIBUTION WIDTH 15.1 % (11.6-14.6)
[2016-11-09 06:39] LABS: CARBON DIOXIDE 22 mEq/L (21-32); CHLORIDE 112 mEq/L (98-107)
[2016-11-09] MEDS: PANTOPRAZOLE SODIUM 40 MG/VIAL IV SCH (08:14)
[2016-11-09] MEDS: ENOXAPARIN 40MG/0.4ML SYR SUBCUT SCH (08:14)
[2016-11-09] MEDS: DOCUSATE SODIUM SUGAR FREE 100MG/10ML UDC NG SCH (08:14)
[2016-11-09] MEDS: ZONISAMIDE 100MG CAPSULE PO SCH (08:14)
[2016-11-09] MEDS: ASPIRIN 81MG EC TABLET PO SCH (08:15)
[2016-11-09] MEDS: METOPROLOL TARTRATE 50MG TABLET PO SCH ×2 (08:15→20:01)
[2016-11-09] MEDS: AMLODIPINE 10MG TABLET PO SCH (08:15)
[2016-11-09] MEDS: LEVETIRACETAM 1,500 MG in SODIUM CHLORIDE 0.9% 100 ML IV SCH ×2 (12:08→21:00)
[2016-11-09] MEDS: ACETAMINOPHEN 325MG TABLET PO PRN ×2 (16:34→23:40)
[2016-11-09] MEDS: PHENYTOIN SODIUM 300 MG in SODIUM CHLORIDE 0.9% 50 ML IV SCH (20:01)
[2016-11-10] VITALS (70 sets, daily range): BP systolic 92–158; BP diastolic 64–120
[2016-11-10] MEDS: IPRATROPIUM/ALBUTEROL 0.5-3(2.5)MG/3ML NEB HHN SCH ×4 (01:45→20:47)
[2016-11-10] MEDS: PIPERACILLIN/TAZ 3.375G PREMIX 50 ML IV SCH ×3 (04:10→18:32)
[2016-11-10 05:30] LABS: HEMATOCRIT. 30.3 % (42.0-52.0); HEMOGLOBIN. 10.4 g/dL (14.0-18.0); MEAN CORPUSCULAR HEMOGLOBIN 33.1 pg (28.0-32.0); MEAN CORPUSCULAR VOLUME 96.3 fL (80.0-94.0); MEAN PLATELET VOLUME 6.5 fl (7.4-10.4); PLATELET 340 x1000/uL (130-400); RED BLOOD CELL COUNT 3.14 mill/uL (4.7-6.1); RED CELL DISTRIBUTION WIDTH 14.7 % (11.6-14.6)
[2016-11-10 06:40] LABS: CARBON DIOXIDE 21 mEq/L (21-32); CHLORIDE 111 mEq/L (98-107)
[2016-11-10] MEDS: AMLODIPINE 10MG TABLET PO SCH (09:00)
[2016-11-10] MEDS: METOPROLOL TARTRATE 50MG TABLET PO SCH ×2 (09:00→20:42)
[2016-11-10 09:08] LABS: BG BASE EXCESS -2.3 mmol/L (-2.0-2.0); BG CARBOXYHEMOGLOBIN 0.3 % (0.5-1.5); BG DEOXYHEMOGLOBIN 1.3 % (0.0-5.0); BG FRACTION INSPIRED OXYGEN 28; BG HCO3 ACT 22.1 mmol/L (22.0-26.0); BG METHEMOGLOBIN 0.1 % (0.0-1.5); BG OXYGEN SATURATION 98.7 % (92.0-98.5); BG OXYHEMOGLOBIN 98.3 % (94.0-97.0); BG PCO2 36.8 mmHg (35.0-45.0); BG PH 7.397 (7.350-7.450); BG PRESSURE SUPPORT 8; BG SAMPLE SITE RIGHT RADIAL; BG TOTAL HEMOGLOBIN 10.8 g/dL (12.0-18.0); BG VENT MODE VENT - CPAP
[2016-11-10] MEDS: DOCUSATE SODIUM SUGAR FREE 100MG/10ML UDC NG SCH (09:34)
[2016-11-10] MEDS: ZONISAMIDE 100MG CAPSULE PO SCH (09:34)
[2016-11-10] MEDS: ENOXAPARIN 40MG/0.4ML SYR SUBCUT SCH (09:34)
[2016-11-10] MEDS: PANTOPRAZOLE SODIUM 40 MG/VIAL IV SCH (09:34)
[2016-11-10] MEDS: LEVETIRACETAM 500MG/5ML CUP NG SCH ×2 (09:35→20:44)
[2016-11-10] MEDS: ASPIRIN 81MG EC TABLET PO SCH (09:35)
[2016-11-10 09:42] LABS: PLATELET ESTIMATE NORMAL
[2016-11-10] MEDS ORDERED: POTASSIUM CHLORIDE 20MEQ/PACKET PO SCH (10:30)
[2016-11-10] MEDS: ACETAMINOPHEN 325MG TABLET PO PRN (15:48)
[2016-11-10] MEDS: SODIUM CHLORIDE 0.9% 1,000 ML IV SCH (18:33)
[2016-11-10] MEDS: PHENYTOIN 100 MG/4 ML UDC NG SCH (20:43)
[2016-11-10] MEDS: MORPHINE SULFATE 4 MG/ML CPJ (NOT FOR IM USE) IV PRN (22:22)
[2016-11-11] VITALS (12 sets, daily range): BP systolic 96–133; BP diastolic 60–76
[2016-11-11] MEDS: ACETAMINOPHEN 325MG TABLET PO PRN (00:38)
[2016-11-11] MEDS: IPRATROPIUM/ALBUTEROL 0.5-3(2.5)MG/3ML NEB HHN SCH ×4 (00:42→21:16)
[2016-11-11] MEDS: MORPHINE SULFATE 4 MG/ML CPJ (NOT FOR IM USE) IV PRN ×4 (01:48→21:50)
[2016-11-11] MEDS: PIPERACILLIN/TAZ 3.375G PREMIX 50 ML IV SCH ×3 (02:16→17:40)
[2016-11-11 05:57] LABS: CARBON DIOXIDE 19 mEq/L (21-32); CHLORIDE 107 mEq/L (98-107)
[2016-11-11 06:14] LABS: HEMATOCRIT. 32.1 % (42.0-52.0); HEMOGLOBIN. 10.9 g/dL (14.0-18.0); MEAN CORPUSCULAR VOLUME 97.2 fL (80.0-94.0); MEAN PLATELET VOLUME 6.3 fl (7.4-10.4); PLATELET 377 x1000/uL (130-400); RED BLOOD CELL COUNT 3.31 mill/uL (4.7-6.1); RED CELL DISTRIBUTION WIDTH 14.5 % (11.6-14.6)
[2016-11-11] MEDS: SODIUM CHLORIDE 0.9% 1,000 ML IV SCH ×2 (08:26→15:51)
[2016-11-11] MEDS: ENOXAPARIN 40MG/0.4ML SYR SUBCUT SCH (08:47)
[2016-11-11] MEDS: DOCUSATE SODIUM SUGAR FREE 100MG/10ML UDC NG SCH (08:47)
[2016-11-11] MEDS: PANTOPRAZOLE SODIUM 40 MG/VIAL IV SCH (08:47)
[2016-11-11] MEDS: LEVETIRACETAM 500MG/5ML CUP NG SCH ×2 (08:47→21:48)
[2016-11-11] MEDS: METOPROLOL TARTRATE 50MG TABLET PO SCH ×2 (08:48→21:48)
[2016-11-11] MEDS: AMLODIPINE 10MG TABLET PO SCH (08:48)
[2016-11-11] MEDS: ZONISAMIDE 100MG CAPSULE PO SCH (08:48)
[2016-11-11] MEDS: ASPIRIN 81MG EC TABLET PO SCH (08:48)
[2016-11-11] MEDS ORDERED: POTASSIUM CHLORIDE 20MEQ TABLET SR PO SCH (09:15)
[2016-11-11] MEDS: MAGNESIUM/ALUMINUM HYDROXIDE/SIMETHICONE 30ML UDC PO PRN ×2 (15:48→19:34)
[2016-11-11 17:18] LABS: ATYPICAL LYMPHOCYTES 2; PLATELET ESTIMATE NORMAL
[2016-11-11] MEDS: PHENYTOIN 100 MG/4 ML UDC NG SCH (21:49)
[2016-11-12] VITALS (12 sets, daily range): BP systolic 104–132; BP diastolic 54–73
[2016-11-12] MEDS: ACETAMINOPHEN 325MG TABLET PO PRN ×3 (00:52→16:56)
[2016-11-12] MEDS: SODIUM CHLORIDE 0.9% 1,000 ML IV SCH ×2 (01:00→17:25)
[2016-11-12] MEDS: IPRATROPIUM/ALBUTEROL 0.5-3(2.5)MG/3ML NEB HHN SCH ×4 (01:07→21:35)
[2016-11-12] MEDS: PIPERACILLIN/TAZ 3.375G PREMIX 50 ML IV SCH ×3 (02:10→17:23)
[2016-11-12] MEDS: MORPHINE SULFATE 4 MG/ML CPJ (NOT FOR IM USE) IV PRN ×3 (02:11→20:47)
[2016-11-12 07:12] LABS: BASOPHILS % 0.7 % (0.0-2.0); EOSINOPHILS % 0.5 % (0.0-5.0); HEMATOCRIT. 27.7 % (42.0-52.0); HEMOGLOBIN. 9.3 g/dL (14.0-18.0); LYMPHOCYTES % 9.9 % (20.0-50.0); MEAN CORPUSCULAR HEMOGLOBIN 32.4 pg (28.0-32.0); MEAN CORPUSCULAR VOLUME 96.4 fL (80.0-94.0); MEAN PLATELET VOLUME 6.5 fl (7.4-10.4); MONOCYTES % 13.3 % (2.0-8.0); NEUTROPHILS % 75.6 % (40.0-76.0); PLATELET 386 x1000/uL (130-400); RED BLOOD CELL COUNT 2.88 mill/uL (4.7-6.1); RED CELL DISTRIBUTION WIDTH 14.5 % (11.6-14.6)
[2016-11-12 07:53] LABS: CARBON DIOXIDE 22 mEq/L (21-32); CHLORIDE 109 mEq/L (98-107); CREATINE KINASE 101 IU/L (39-308)
[2016-11-12] MEDS: ASPIRIN 81MG EC TABLET PO SCH (08:48)
[2016-11-12] MEDS: LEVETIRACETAM 500MG/5ML CUP NG SCH ×2 (08:48→20:48)
[2016-11-12] MEDS: METOPROLOL TARTRATE 50MG TABLET PO SCH ×2 (08:49→20:48)
[2016-11-12] MEDS: FAMOTIDINE 20MG/2ML VIAL IV SCH ×2 (08:49→20:47)
[2016-11-12] MEDS: ZONISAMIDE 100MG CAPSULE PO SCH (08:49)
[2016-11-12] MEDS: ENOXAPARIN 40MG/0.4ML SYR SUBCUT SCH (08:49)
[2016-11-12] MEDS: DOCUSATE SODIUM SUGAR FREE 100MG/10ML UDC NG SCH (08:49)
[2016-11-12] MEDS: AMLODIPINE 10MG TABLET PO SCH (08:50)
[2016-11-12] MEDS: ONDANSETRON HCL 4MG/2ML VIAL IV PRN (18:03)
[2016-11-12] MEDS: PHENYTOIN 100 MG/4 ML UDC NG SCH (20:48)
[2016-11-12] MEDS: DIPHENHYDRAMINE 50MG/ML VIAL IV PRN (21:37)
[2016-11-13] VITALS (11 sets, daily range): BP systolic 100–152; BP diastolic 54–78
[2016-11-13] MEDS: PIPERACILLIN/TAZ 3.375G PREMIX 50 ML IV SCH ×3 (01:07→17:27)
[2016-11-13] MEDS: MORPHINE SULFATE 4 MG/ML CPJ (NOT FOR IM USE) IV PRN ×2 (01:36→05:22)
[2016-11-13] MEDS: SODIUM CHLORIDE 0.9% 1,000 ML IV SCH (03:23)
[2016-11-13] MEDS: IPRATROPIUM/ALBUTEROL 0.5-3(2.5)MG/3ML NEB HHN SCH ×3 (04:14→14:03)
[2016-11-13 06:41] LABS: BASOPHILS % 0.2 % (0.0-2.0); EOSINOPHILS % 0.7 % (0.0-5.0); HEMATOCRIT. 23.9 % (42.0-52.0); HEMOGLOBIN. 8.4 g/dL (14.0-18.0); LYMPHOCYTES % 7.5 % (20.0-50.0); MEAN CORPUSCULAR HEMOGLOBIN 33.4 pg (28.0-32.0); MEAN CORPUSCULAR VOLUME 95.1 fL (80.0-94.0); MEAN PLATELET VOLUME 6.6 fl (7.4-10.4); MONOCYTES % 8.1 % (2.0-8.0); NEUTROPHILS % 83.5 % (40.0-76.0); PLATELET 403 x1000/uL (130-400); RED BLOOD CELL COUNT 2.51 mill/uL (4.7-6.1); RED CELL DISTRIBUTION WIDTH 14.7 % (11.6-14.6)
[2016-11-13 08:16] LABS: CARBON DIOXIDE 20 mEq/L (21-32); CHLORIDE 108 mEq/L (98-107)
[2016-11-13] MEDS: FAMOTIDINE 20MG/2ML VIAL IV SCH (08:37)
[2016-11-13] MEDS: ASPIRIN 81MG EC TABLET PO SCH (08:38)
[2016-11-13] MEDS: METOPROLOL TARTRATE 50MG TABLET PO SCH (08:38)
[2016-11-13] MEDS: AMLODIPINE 10MG TABLET PO SCH (08:38)
[2016-11-13] MEDS: ENOXAPARIN 40MG/0.4ML SYR SUBCUT SCH (08:39)
[2016-11-13] MEDS: LEVETIRACETAM 500MG/5ML CUP NG SCH (08:39)
[2016-11-13] MEDS: DOCUSATE SODIUM SUGAR FREE 100MG/10ML UDC NG SCH (08:49)
[2016-11-13] MEDS ORDERED: ZONISAMIDE 100MG CAPSULE PO SCH (09:00)
[2016-11-13] MEDS: ACETAMINOPHEN 325MG TABLET PO PRN (14:45)
[2016-11-13] MEDS: ONDANSETRON HCL 4MG/2ML VIAL IV PRN (18:36)
[2016-12-20] MEDS ORDERED: PHEN100C4 PO (23:30)
== END 2016-11-13 20:45 | DRG 720 ==
LOC: ER 21:34 → EDBEDREQTM 23:41 → EDBEDREQ 23:41 → 7WST 11-03 01:27 → EDBEDREQ 11-03 01:29 → ENRESERV 11-03 01:49 → MICUSO 11-03 16:40 → 5EST 11-10 16:39
PROVIDERS: ADMIT Internal Medicine; ATTEND Internal Medicine
PROC: 02HV33Z Insertion of Infusion Device into Superior Vena Cava, Percutaneous Approach (ICD-10-PCS; 2016-11-04)
PROC: B548ZZA Ultrasonography of Superior Vena Cava, Guidance (ICD-10-PCS; 2016-11-04)
PROC: 5A1955Z Respiratory Ventilation, Greater than 96 Consecutive Hours (ICD-10-PCS; principal; 2016-11-05)
PROC: 0BH17EZ Insertion of Endotracheal Airway into Trachea, Via Natural or Artificial Opening (ICD-10-PCS; 2016-11-05)
DX: A41.9 Sepsis, unspecified organism (principal); J96.00 Acute respiratory failure, unspecified whether with hypoxia or hypercapnia; G40.411 Other generalized epilepsy and epileptic syndromes, intractable, with status epilepticus; M62.82 Rhabdomyolysis; E87.1 Hypo-osmolality and hyponatremia; L89.90 Pressure ulcer of unspecified site, unspecified stage; I95.9 Hypotension, unspecified; E87.6 Hypokalemia; D64.9 Anemia, unspecified; E78.00 Pure hypercholesterolemia, unspecified; E78.5 Hyperlipidemia, unspecified; I10 Essential (primary) hypertension; Z60.2 Problems related to living alone; T42.0X5A Adverse effect of hydantoin derivatives, initial encounter; Y92.89 Other specified places as the place of occurrence of the external cause; Z79.899 Other long term (current) drug therapy; Z86.718 Personal history of other venous thrombosis and embolism; Z89.612 Acquired absence of left leg above knee; Z91.19 Patient's noncompliance with other medical treatment and regimen; Z79.82 Long term (current) use of aspirin
CPT/HCPCS: 31500; 36415; 36569; 36600; 70450; 70551; 71010; 76705; 76937; 80048; 80053; 80061; 80185; 80202; 80305; 81001; 82375; 82533; 82542; 82550; 82805; 83690; 83735; 83930; 83935; 84132; 84145; 84300; 84443; 84478; 84484; 85025; 86705; 86709; 86803; 87040; 87186; 87340; 92610; 93005; 93306; 93971; 94002; 94003; 94640; 94664; 96361; 96374; 96375; 99291; C1725; C9113; J0330; J1165; J1200; J1650; J1953; J2060; J2270; J2405; J2543; J2704; J3370; J3480; J3490; J7030; J7040; J7050; J7060; J7620; A4315

== ENCOUNTER 2016-11-29 00:48 | Inpatient (IN) | payer MEDICAID ==
[~2016-11-29] VITALS: Ht 167.6 cm; Wt 55.6 kg
[~2016-11-29 00:48] MED LIST changes: -DOCU250C69 PO; -IBUP-2030 PO; -IPRA0.2S51 NEB; -PHEN125O2 PO
[2016-11-29] MEDS ORDERED: SODIUM CHLORIDE 0.9% 1,000 ML IV ONE ×2 (03:02→04:47)
[2016-11-29] MEDS ORDERED: ONDANSETRON HCL 4MG/2ML VIAL IV STA (03:02)
[2016-11-29] MEDS ORDERED: FAMOTIDINE 20MG/2ML VIAL IV STA (03:02)
[2016-11-29] MEDS ORDERED: ASPIRIN 81MG TABLET PO ONE (03:15)
[2016-11-29 03:33] LABS: BASOPHILS % 1.3 % (0.0-2.0); HEMATOCRIT. 28.2 % (42.0-52.0); HEMOGLOBIN. 9.6 g/dL (14.0-18.0); LYMPHOCYTES % 26.7 % (20.0-50.0); MEAN CORPUSCULAR HEMOGLOBIN 32.6 pg (28.0-32.0); MEAN CORPUSCULAR VOLUME 95.7 fL (80.0-94.0); MEAN PLATELET VOLUME 5.6 fl (7.4-10.4); MONOCYTES % 12.2 % (2.0-8.0); NEUTROPHILS % 56.8 % (40.0-76.0); PLATELET 671 x1000/uL (130-400); RED BLOOD CELL COUNT 2.95 mill/uL (4.7-6.1); RED CELL DISTRIBUTION WIDTH 15.2 % (11.6-14.6)
[2016-11-29 03:40] LABS: INR 1.1
[2016-11-29 03:50] LABS: CARBON DIOXIDE 30 mEq/L (21-32); CHLORIDE 101 mEq/L (98-107); ETHANOL BLOOD < 10 mg/dL; TROPONIN I < 0.02 ng/mL (0.00-0.04)
[2016-11-29] MEDS ORDERED: KCL 20MEQ/100ML PREMIX 100 ML IV NR (04:45)
[2016-11-29] MEDS ORDERED: LEVOFLOXACIN 750MG PREMIX 150 ML IV ONE (05:00)
[2016-11-29] MEDS ORDERED: METRONIDAZOLE 500 MG PREMIX 100 ML IV ONE (05:00)
[2016-11-29] MEDS ORDERED: POTASSIUM BICARB/CIT ACID 25 MEQ TABLET.EFF PO NR (05:15)
[2016-11-29 05:30] LABS: BG BASE EXCESS 3.4 mmol/L (-2.0-2.0); BG CARBOXYHEMOGLOBIN 0.3 % (0.5-1.5); BG DEOXYHEMOGLOBIN 10.7 % (0.0-5.0); BG FRACTION INSPIRED OXYGEN 21; BG HCO3 ACT 28.3 mmol/L (22.0-26.0); BG METHEMOGLOBIN 0.3 % (0.0-1.5); BG OXYGEN SATURATION 89.2 % (92.0-98.5); BG OXYHEMOGLOBIN 88.7 % (94.0-97.0); BG PCO2 44.9 mmHg (35.0-45.0); BG PH 7.418 (7.350-7.450); BG PO2 57.3 mmHg (75.0-100.0); BG SAMPLE SITE RIGHT RADIAL; BG VENT MODE ROOM AIR
[2016-11-29 06:45] LABS: CLARITY URINE CLEAR (CLEAR); COLOR URINE YELLOW (YELLOW); GLUCOSE URINE NEGATIVE (NEGATIVE); KETONES URINE NEGATIVE (NEGATIVE); LEUKOCYTE ESTERASE URINE NEGATIVE (NEGATIVE); NITRITE URINE NEGATIVE (NEGATIVE); OCCULT BLOOD URINE NEGATIVE (NEGATIVE); PROTEIN URINE NEGATIVE (NEGATIVE); SPECIFIC GRAVITY URINE 1.009 (1.005-1.030); UROBILINOGEN URINE 0.2 E.U./dL (0.2-1.0)
[2016-11-29 06:59] LABS: *AMPHETAMINES SCREEN URINE NEGATIVE (NEGATIVE); *BARBITURATES SCREEN URINE NEGATIVE (NEGATIVE); *BENZODIAZEPINES SCREEN URINE NEGATIVE (NEGATIVE); *COCAINE SCREEN URINE NEGATIVE (NEGATIVE); CANNABINOID URINE SCREEN NEGATIVE (NEGATIVE); METHADONE URINE SCREEN NEGATIVE (NEGATIVE); OPIATES URINE SCREEN NEGATIVE (NEGATIVE); PHENCYCLIDINE URINE SCREEN NEGATIVE (NEGATIVE)
[2016-11-29] MEDS ORDERED: CLONIDINE 0.1MG TABLET PO PRN (07:00)
[2016-11-29] MEDS ORDERED: ACETAMINOPHEN 325MG TABLET PO PRN ×2 (07:00→20:45)
[2016-11-29] MEDS: ASPIRIN 81MG EC TABLET PO SCH (09:00)
[2016-11-29 11:00] VITALS: BP 110/61
[2016-11-29 12:00] VITALS: BP 131/72
[2016-11-29] MEDS: ENOXAPARIN 40MG/0.4ML SYR SUBCUT SCH (12:51)
[2016-11-29] MEDS ORDERED: INFLUENZA VIRUS VACCINE 0.5ML SYR IM ONE (13:30)
[2016-11-29] MEDS ORDERED: KCL 10MEQ/50ML PREMIX 50 ML IV SCH (14:00)
[2016-11-29] MEDS: HYDROCODONE/ACETAMINOPHEN 5/325MG TABLET PO PRN ×2 (15:03→20:55)
[2016-11-29 16:00] VITALS: BP 106/56
[2016-11-29 20:00] VITALS: BP 117/68
[2016-11-29] MEDS: DOCUSATE SODIUM 100MG CAPSULE PO SCH (20:45)
[2016-11-29] MEDS ORDERED: LORAZEPAM 2MG/ML CPJ IV PRN (20:45)
[2016-11-29] MEDS: HYDROCHLOROTHIAZIDE 12.5MG CAPSULE PO SCH (21:25)
[2016-11-29] MEDS: LEVETIRACETAM 500MG TABLET PO SCH (21:25)
[2016-11-29] MEDS: AMLODIPINE 10MG TABLET PO SCH (21:25)
[2016-11-29] MEDS: ATORVASTATIN CALCIUM 10MG TABLET PO SCH (21:25)
[2016-11-30] VITALS: BP 112/66
[2016-11-30] MEDS: HYDROCODONE/ACETAMINOPHEN 5/325MG TABLET PO PRN ×2 (03:12→12:40)
[2016-11-30 04:00] VITALS: BP 117/72
[2016-11-30] MEDS: ONDANSETRON HCL 4MG/2ML VIAL IV PRN ×2 (04:09→18:02)
[2016-11-30] MEDS ORDERED: LEVOFLOXACIN 500MG PREMIX 100 ML IV SCH (05:00)
[2016-11-30 06:48] LABS: BASOPHILS % 1.3 % (0.0-2.0); EOSINOPHILS % 3.9 % (0.0-5.0); HEMATOCRIT. 29.9 % (42.0-52.0); HEMOGLOBIN. 10.3 g/dL (14.0-18.0); MEAN CORPUSCULAR HEMOGLOBIN 33.4 pg (28.0-32.0); MEAN CORPUSCULAR VOLUME 96.5 fL (80.0-94.0); MEAN PLATELET VOLUME 5.8 fl (7.4-10.4); MONOCYTES % 14.3 % (2.0-8.0); NEUTROPHILS % 51.5 % (40.0-76.0); PLATELET 610 x1000/uL (130-400); RED CELL DISTRIBUTION WIDTH 15.5 % (11.6-14.6)
[2016-11-30 07:13] LABS: CARBON DIOXIDE 29 mEq/L (21-32); CHLORIDE 104 mEq/L (98-107)
[2016-11-30 07:40] VITALS: BP 139/76
[2016-11-30] MEDS: HYDROCHLOROTHIAZIDE 12.5MG CAPSULE PO SCH (09:25)
[2016-11-30] MEDS: ASPIRIN 81MG EC TABLET PO SCH (09:25)
[2016-11-30] MEDS: DOCUSATE SODIUM 100MG CAPSULE PO SCH (09:25)
[2016-11-30] MEDS: LEVETIRACETAM 500MG TABLET PO SCH ×2 (09:25→18:02)
[2016-11-30] MEDS: AMLODIPINE 10MG TABLET PO SCH (09:26)
[2016-11-30 11:39] VITALS: BP 117/71
[2016-11-30] MEDS: TRAMADOL 50MG TABLET PO PRN ×2 (11:40→18:02)
[2016-11-30] MEDS ORDERED: IPRATROPIUM/ALBUTEROL 0.5-3(2.5)MG/3ML NEB HHN PRN (13:00)
[2016-11-30] MEDS: ENOXAPARIN 40MG/0.4ML SYR SUBCUT SCH (13:05)
[2016-11-30 16:00] VITALS: BP 100/51
[2016-11-30 20:00] VITALS: BP 100/59
[2016-11-30] MEDS: ATORVASTATIN CALCIUM 10MG TABLET PO SCH (20:22)
[2016-11-30] MEDS ORDERED: MAGNESIUM/ALUMINUM HYDROXIDE/SIMETHICONE 30ML UDC PO PRN (21:30)
[2016-12-01] VITALS: BP 101/60
[2016-12-01] MEDS: HYDROCODONE/ACETAMINOPHEN 5/325MG TABLET PO PRN ×2 (02:03→05:49)
[2016-12-01 04:00] VITALS: BP 94/46
[2016-12-01] MEDS: LEVOFLOXACIN 500MG PREMIX 100 ML IV SCH (05:49)
[2016-12-01 07:01] LABS: HEMATOCRIT. 29.1 % (42.0-52.0); HEMOGLOBIN. 9.9 g/dL (14.0-18.0); MEAN CORPUSCULAR HEMOGLOBIN 32.9 pg (28.0-32.0); MEAN CORPUSCULAR VOLUME 96.9 fL (80.0-94.0); MEAN PLATELET VOLUME 5.8 fl (7.4-10.4); PLATELET 531 x1000/uL (130-400); RED BLOOD CELL COUNT 3.01 mill/uL (4.7-6.1)
[2016-12-01 07:40] LABS: CARBON DIOXIDE 29 mEq/L (21-32); CHLORIDE 102 mEq/L (98-107)
[2016-12-01 08:00] VITALS: BP 96/48
[2016-12-01] MEDS: HYDROCHLOROTHIAZIDE 12.5MG CAPSULE PO SCH (09:00)
[2016-12-01] MEDS: AMLODIPINE 10MG TABLET PO SCH (09:00)
[2016-12-01] MEDS: DOCUSATE SODIUM 100MG CAPSULE PO SCH (09:14)
[2016-12-01] MEDS: LEVETIRACETAM 500MG TABLET PO SCH ×2 (09:14→17:17)
[2016-12-01] MEDS: ASPIRIN 81MG EC TABLET PO SCH (09:14)
[2016-12-01] MEDS: TRAMADOL 50MG TABLET PO PRN (09:15)
[2016-12-01 12:00] VITALS: BP 115/63
[2016-12-01 12:34] LABS: ATYPICAL LYMPHOCYTES 2
[2016-12-01 12:35] LABS: PLATELET ESTIMATE INCREASED
[2016-12-01] MEDS: ENOXAPARIN 40MG/0.4ML SYR SUBCUT SCH (13:08)
[2016-12-01 16:00] VITALS: BP 106/60
[2016-12-01 20:00] VITALS: BP 103/66
[2016-12-01] MEDS: ATORVASTATIN CALCIUM 10MG TABLET PO SCH (21:58)
[2016-12-01] MEDS: ENOXAPARIN 60MG/0.6ML SYR SUBCUT SCH (22:01)
[2016-12-02] VITALS: BP 112/58
[2016-12-02 04:00] VITALS: BP 117/67
[2016-12-02] MEDS: LEVOFLOXACIN 500MG PREMIX 100 ML IV SCH (04:03)
[2016-12-02 08:00] VITALS: BP 131/72
[2016-12-02] MEDS: DOCUSATE SODIUM 100MG CAPSULE PO SCH (09:09)
[2016-12-02] MEDS: LEVETIRACETAM 500MG TABLET PO SCH (09:09)
[2016-12-02] MEDS: ASPIRIN 81MG EC TABLET PO SCH (09:09)
[2016-12-02] MEDS: HYDROCHLOROTHIAZIDE 12.5MG CAPSULE PO SCH (09:09)
[2016-12-02] MEDS: AMLODIPINE 10MG TABLET PO SCH (09:09)
[2016-12-02] MEDS: ENOXAPARIN 60MG/0.6ML SYR SUBCUT SCH (09:10)
[2016-12-02] MEDS: ONDANSETRON HCL 4MG/2ML VIAL IV PRN (11:39)
[2016-12-02 12:00] VITALS: BP 116/71
[2016-12-02 13:19] VITALS: BP 116/71
[2016-12-20] MEDS ORDERED: PHEN100C4 PO (23:30)
== END 2016-12-02 15:40 | DRG 720 ==
LOC: ER 00:48 → 5WST 05:07 → ENRESERV 10:15 → 5WST 12:28
PROVIDERS: ADMIT Hospitalist; ATTEND Hospitalist
DX: A41.9 Sepsis, unspecified organism (principal); J96.00 Acute respiratory failure, unspecified whether with hypoxia or hypercapnia; E44.0 Moderate protein-calorie malnutrition; I82.411 Acute embolism and thrombosis of right femoral vein; J18.1 Lobar pneumonia, unspecified organism; Z89.612 Acquired absence of left leg above knee; E87.6 Hypokalemia; T42.0X5A Adverse effect of hydantoin derivatives, initial encounter; G40.909 Epilepsy, unspecified, not intractable, without status epilepticus; D50.9 Iron deficiency anemia, unspecified; I82.431 Acute embolism and thrombosis of right popliteal vein; I73.9 Peripheral vascular disease, unspecified; I10 Essential (primary) hypertension; Z68.1 Body mass index [BMI] 19.9 or less, adult; Z79.82 Long term (current) use of aspirin; Z79.899 Other long term (current) drug therapy; Z89.512 Acquired absence of left leg below knee; Z72.89 Other problems related to lifestyle
CPT/HCPCS: 36415; 36600; 71010; 74176; 80053; 80185; 80305; 81003; 82375; 82805; 83605; 83690; 83880; 84484; 85025; 85610; 87040; 87086; 93005; 93971; 96361; 96365; 96366; 96367; 96368; 96375; 97162; 97530; 99285; G0482; J1650; J1956; J2060; J2405; J3480; J3490; J7030; J7050

== ENCOUNTER 2016-12-11 02:51 | Emergency (ER) | payer MEDICAID ==
[~2016-12-11] VITALS: Ht 162.6 cm; Wt 68.0 kg
[2016-12-11] MEDS ORDERED: LEVETIRACETAM 500MG PREMIX 100 ML IV ONE (04:45)
[2016-12-11 04:51] LABS: HEMATOCRIT. 33.9 % (42.0-52.0); HEMOGLOBIN. 11.6 g/dL (14.0-18.0); MEAN CORPUSCULAR HEMOGLOBIN 33.7 pg (28.0-32.0); MEAN CORPUSCULAR VOLUME 98.2 fL (80.0-94.0); MEAN PLATELET VOLUME 5.9 fl (7.4-10.4); PLATELET 328 x1000/uL (130-400); RED BLOOD CELL COUNT 3.46 mill/uL (4.7-6.1); RED CELL DISTRIBUTION WIDTH 16.2 % (11.6-14.6)
[2016-12-11 05:06] LABS: CARBON DIOXIDE 29 mEq/L (21-32); CHLORIDE 101 mEq/L (98-107)
[2016-12-11] MEDS ORDERED: KETOROLAC 15MG/ML VIAL IV ONE (05:15)
[2016-12-11 07:54] LABS: PLATELET ESTIMATE NORMAL
[2016-12-11 12:43] VITALS: BP 124/88
[2016-12-20] MEDS ORDERED: PHEN100C4 PO (23:30)
== END 2016-12-11 12:58 | disposition home or self-care (01) ==
LOC: ER 02:51
DX: G40.909 Epilepsy, unspecified, not intractable, without status epilepticus (principal); I10 Essential (primary) hypertension; Z79.82 Long term (current) use of aspirin; Z89.612 Acquired absence of left leg above knee
CPT/HCPCS: 36415; 80053; 85025; 93005; 96365; 96375; 99285; J1885; J1953; Z7610

== ENCOUNTER 2017-03-06 07:49 | Emergency (ER) | payer MEDICAID ==
[~2017-03-06] VITALS: Ht 170.2 cm; Wt 55.0 kg
[~2017-03-06 07:49] MED LIST changes: -IBUP-1636 PO; +IBUP-2321 PO
[2017-03-06] MEDS ORDERED: ONDANSETRON 4MG ODT PO ONE (11:15)
[2017-03-06 11:38] LABS: HEMATOCRIT. 39.1 % (42.0-52.0); HEMOGLOBIN. 13.1 g/dL (14.0-18.0); MEAN CORPUSCULAR HEMOGLOBIN 32.1 pg (28.0-32.0); MEAN CORPUSCULAR VOLUME 96.1 fL (80.0-94.0); MEAN PLATELET VOLUME 6.1 fl (7.4-10.4); PLATELET 340 x1000/uL (130-400); RED BLOOD CELL COUNT 4.07 mill/uL (4.7-6.1); RED CELL DISTRIBUTION WIDTH 14.1 % (11.6-14.6)
[2017-03-06 11:52] LABS: INR 1.1; PROTHROMBIN TIME 11.3 sec (9.4-11.6)
[2017-03-06 11:53] LABS: CARBON DIOXIDE 30 mEq/L (21-32); CHLORIDE 98 mEq/L (98-107)
[2017-03-06 12:53] LABS: CLARITY URINE CLEAR (CLEAR); COLOR URINE YELLOW (YELLOW); KETONES URINE NEGATIVE (NEGATIVE); LEUKOCYTE ESTERASE URINE NEGATIVE (NEGATIVE); NITRITE URINE NEGATIVE (NEGATIVE); OCCULT BLOOD URINE NEGATIVE (NEGATIVE); PROTEIN URINE NEGATIVE (NEGATIVE); SPECIFIC GRAVITY URINE 1.009 (1.005-1.030); UROBILINOGEN URINE 0.2 E.U./dL (0.2-1.0)
[2017-03-06 13:00] LABS: PLATELET ESTIMATE NORMAL
[2017-03-06 15:22] VITALS: BP 117/69
== END 2017-03-06 16:08 | disposition home or self-care (01) ==
LOC: ER 07:58
DX: R53.1 Weakness (principal); R42 Dizziness and giddiness; R11.0 Nausea; R94.31 Abnormal electrocardiogram [ECG] [EKG]; I10 Essential (primary) hypertension; G40.909 Epilepsy, unspecified, not intractable, without status epilepticus; Z79.82 Long term (current) use of aspirin; Z79.899 Other long term (current) drug therapy
CPT/HCPCS: 36415; 80053; 81003; 85025; 85610; 93005; 99285; Q0162

== ENCOUNTER 2017-03-12 08:13 | Inpatient (IN) | payer MEDICAID ==
[~2017-03-12] VITALS: Ht 167.6 cm; Wt 55.3 kg
[2017-03-12] MEDS ORDERED: FAMOTIDINE 20MG/2ML VIAL IV STA (09:26)
[2017-03-12] MEDS ORDERED: ONDANSETRON HCL 4MG/2ML VIAL IV STA (09:26)
[2017-03-12] MEDS ORDERED: SODIUM CHLORIDE 0.9% 1,000 ML IV ONE (09:26)
[2017-03-12] MEDS ORDERED: MORPHINE SULFATE 4 MG/ML CPJ (NOT FOR IM USE) IV STA (09:26)
[2017-03-12 09:52] LABS: HEMOGLOBIN. 13.9 g/dL (14.0-18.0); MEAN CORPUSCULAR HEMOGLOBIN 32.7 pg (28.0-32.0); MEAN CORPUSCULAR VOLUME 96.8 fL (80.0-94.0); MEAN PLATELET VOLUME 6.1 fl (7.4-10.4); PLATELET 333 x1000/uL (130-400); RED BLOOD CELL COUNT 4.24 mill/uL (4.7-6.1); RED CELL DISTRIBUTION WIDTH 14.4 % (11.6-14.6)
[2017-03-12 10:01] LABS: PROTHROMBIN TIME 10.3 sec (9.4-11.6)
[2017-03-12 10:14] LABS: CARBON DIOXIDE 27 mEq/L (21-32); CHLORIDE 97 mEq/L (98-107)
[2017-03-12 10:20] LABS: TROPONIN I < 0.02 ng/mL (0.00-0.04)
[2017-03-12 10:29] LABS: CLARITY URINE CLEAR (CLEAR); COLOR URINE YELLOW (YELLOW); KETONES URINE NEGATIVE (NEGATIVE); LEUKOCYTE ESTERASE URINE NEGATIVE (NEGATIVE); NITRITE URINE NEGATIVE (NEGATIVE); OCCULT BLOOD URINE NEGATIVE (NEGATIVE); PH URINE 8.5 (4.5-8.0); PROTEIN URINE NEGATIVE (NEGATIVE); UROBILINOGEN URINE 0.2 E.U./dL (0.2-1.0)
[2017-03-12 10:46] LABS: PLATELET ESTIMATE NORMAL
[2017-03-12] MEDS ORDERED: TRAMADOL 50MG TABLET PO PRN (11:45)
[2017-03-12] MEDS ORDERED: ACETAMINOPHEN 325MG TABLET PO PRN (11:45)
[2017-03-12] MEDS ORDERED: LORAZEPAM 1MG TABLET PO PRN (11:45)
[2017-03-12] MEDS ORDERED: ONDANSETRON HCL 4MG/2ML VIAL IV PRN (11:45)
[2017-03-12] MEDS ORDERED: LACTULOSE 20G/30ML UDC PO PRN (12:30)
[2017-03-12] MEDS ORDERED: IOHEXOL-300 100 ML BOTTLE ONE (13:11)
[2017-03-12] MEDS ORDERED: CLONIDINE 0.1MG TABLET PO PRN (17:06)
[2017-03-12] MEDS ORDERED: HYDROCODONE/ACETAMINOPHEN 5/325MG TABLET PO PRN (17:09)
[2017-03-12] MEDS ORDERED: IPRATROPIUM/ALBUTEROL 0.5-3(2.5)MG/3ML NEB NEB PRN (17:11)
[2017-03-12 17:13] VITALS: BP 122/72
[2017-03-12] MEDS ORDERED: DOCUSATE SODIUM 100MG CAPSULE PO PRN (17:16)
[2017-03-12 17:19] VITALS: BP 122/72
[2017-03-12] MEDS: LEVETIRACETAM 500MG TABLET PO SCH (17:42)
[2017-03-12 20:43] VITALS: BP 98/59
[2017-03-12] MEDS: ATORVASTATIN CALCIUM 10MG TABLET PO SCH (20:59)
[2017-03-13 00:40] VITALS: BP 97/63
[2017-03-13 04:00] VITALS: BP 111/71
[2017-03-13 07:21] VITALS: BP 104/69
[2017-03-13] MEDS: AMLODIPINE 10MG TABLET PO SCH (08:54)
[2017-03-13] MEDS: LEVETIRACETAM 500MG TABLET PO SCH ×2 (09:00→17:01)
[2017-03-13] MEDS: ASPIRIN 81MG EC TABLET PO SCH (09:00)
[2017-03-13] MEDS: DOCUSATE SODIUM 100MG CAPSULE PO SCH (09:00)
[2017-03-13] MEDS: MAGNESIUM HYDROXIDE 400MG/5ML 30ML UDC PO PRN (11:58)
[2017-03-13 12:00] VITALS: BP 103/64
[2017-03-13 16:00] VITALS: BP 98/58
[2017-03-13] MEDS: ONDANSETRON HCL 4MG TABLET PO PRN (17:01)
[2017-03-13 20:12] VITALS: BP 96/58
[2017-03-13] MEDS: ATORVASTATIN CALCIUM 10MG TABLET PO SCH (21:37)
[2017-03-14] VITALS (7 sets, daily range): BP systolic 96–109; BP diastolic 47–70
[2017-03-14] MEDS: AMLODIPINE 10MG TABLET PO SCH (09:00)
[2017-03-14] MEDS: LEVETIRACETAM 500MG TABLET PO SCH ×2 (09:21→17:10)
[2017-03-14] MEDS: ASPIRIN 81MG EC TABLET PO SCH (09:21)
[2017-03-14] MEDS: DOCUSATE SODIUM 100MG CAPSULE PO SCH (09:21)
[2017-03-14] MEDS: ONDANSETRON HCL 4MG TABLET PO PRN (10:07)
[2017-03-14] MEDS: MORPHINE SULFATE 4 MG/ML CPJ (NOT FOR IM USE) IV PRN (12:21)
[2017-03-14] MEDS: ATORVASTATIN CALCIUM 10MG TABLET PO SCH (20:40)
[2017-03-15] VITALS: BP 99/51
[2017-03-15 04:05] VITALS: BP 101/61
[2017-03-15 07:23] VITALS: BP 99/63
[2017-03-15] MEDS: ASPIRIN 81MG EC TABLET PO SCH (08:35)
[2017-03-15] MEDS: DOCUSATE SODIUM 100MG CAPSULE PO SCH (08:35)
[2017-03-15] MEDS: LEVETIRACETAM 500MG TABLET PO SCH ×2 (08:36→18:03)
[2017-03-15] MEDS: AMLODIPINE 10MG TABLET PO SCH (09:00)
[2017-03-15] MEDS ORDERED: LEVE1000 PO (09:42)
[2017-03-15 11:23] VITALS: BP 100/56
[2017-03-15 16:00] VITALS: BP 96/53
[2017-03-15 20:00] VITALS: BP 94/45
[2017-03-15] MEDS: ATORVASTATIN CALCIUM 10MG TABLET PO SCH (21:27)
[2017-03-16] VITALS: BP 100/62
[2017-03-16] MEDS: MAGNESIUM HYDROXIDE 400MG/5ML 30ML UDC PO PRN (00:01)
[2017-03-16 04:00] VITALS: BP 105/54
[2017-03-16] MEDS: MORPHINE SULFATE 4 MG/ML CPJ (NOT FOR IM USE) IV PRN (04:43)
[2017-03-16 08:00] VITALS: BP 92/56
[2017-03-16] MEDS: LEVETIRACETAM 500MG TABLET PO SCH (08:20)
[2017-03-16] MEDS: DOCUSATE SODIUM 100MG CAPSULE PO SCH (08:20)
[2017-03-16] MEDS: ASPIRIN 81MG EC TABLET PO SCH (08:20)
[2017-03-16] MEDS: AMLODIPINE 10MG TABLET PO SCH (08:22)
[2017-03-16 12:42] VITALS: BP 104/60
== END 2017-03-16 13:40 | DRG 254 ==
LOC: ER 08:13 → 6WST 11:35 → ENRESERV 15:23 → 6WST 03-14 01:06
PROVIDERS: ADMIT Internal Medicine; ATTEND Internal Medicine
DX: K59.00 Constipation, unspecified (principal); I67.82 Cerebral ischemia; K76.89 Other specified diseases of liver; T42.0X5A Adverse effect of hydantoin derivatives, initial encounter; I10 Essential (primary) hypertension; R10.9 Unspecified abdominal pain; G40.909 Epilepsy, unspecified, not intractable, without status epilepticus; E78.5 Hyperlipidemia, unspecified; I73.9 Peripheral vascular disease, unspecified; J44.9 Chronic obstructive pulmonary disease, unspecified; Z89.512 Acquired absence of left leg below knee; Z89.612 Acquired absence of left leg above knee; Z79.1 Long term (current) use of non-steroidal anti-inflammatories (NSAID); Z79.82 Long term (current) use of aspirin; Z79.899 Other long term (current) drug therapy; Y92.89 Other specified places as the place of occurrence of the external cause
CPT/HCPCS: 36415; 70450; 71045; 74177; 80053; 80185; 81003; 82962; 83690; 83880; 84484; 85025; 85610; 93005; 96374; 96375; 99285; J2270; J2405; J3490; J7030; Q0162; Q9967

== ENCOUNTER 2017-08-31 10:59 | Emergency (ER) | payer MEDICAID ==
[~2017-08-31] VITALS: Ht 170.2 cm; Wt 68.0 kg
[~2017-08-31 10:59] MED LIST changes: -KEPP500 PO; +LEVE1000 PO; -PHEN100C4 PO
[2017-08-31] MEDS ORDERED: DOXYCYCLINE HYCLATE 100MG CAPSULE PO ONE (11:30)
[2017-08-31] MEDS ORDERED: TETANUS, DIPHTHERIA, PERTUSSIS VAC/PF 0.5ML (>7YR OLD) IM ONE (11:30)
[2017-08-31 13:58] VITALS: BP 110/70
== END 2017-08-31 14:04 | disposition home or self-care (01) ==
LOC: ER 11:13
DX: G54.6 Phantom limb syndrome with pain (principal); I10 Essential (primary) hypertension; J44.9 Chronic obstructive pulmonary disease, unspecified
CPT/HCPCS: 82962; 99283

== ENCOUNTER 2018-04-04 02:47 | Emergency (ER) | payer MEDICAID, OTHER ==
[~2018-04-04] VITALS: Ht 172.7 cm; Wt 73.0 kg
[2018-04-04 05:29] LABS: HEMATOCRIT. 34.9 % (42.0-52.0); HEMOGLOBIN. 11.9 g/dL (14.0-18.0); MEAN CORPUSCULAR HEMOGLOBIN 33.9 pg (28.0-32.0); MEAN CORPUSCULAR VOLUME 99.6 fL (80.0-94.0); MEAN PLATELET VOLUME 6.6 fl (7.4-10.4); PLATELET 325 x1000/uL (130-400); RED CELL DISTRIBUTION WIDTH 14.5 % (11.6-14.6)
[2018-04-04 05:29] LABS: INR 1.1; PROTHROMBIN TIME 10.7 sec (9.1-11.1)
[2018-04-04 05:39] LABS: CHLORIDE 105 mEq/L (98-107)
[2018-04-04 06:18] LABS: PLATELET ESTIMATE NORMAL
[2018-04-04] MEDS ORDERED: POTASSIUM CHLORIDE 20MEQ TABLET SR PO ONE (06:30)
[2018-04-04 09:08] VITALS: BP 117/76
== END 2018-04-04 09:11 | disposition home or self-care (01) ==
LOC: ER 03:11
DX: J06.9 Acute upper respiratory infection, unspecified (principal); T48.4X5A Adverse effect of expectorants, initial encounter; G47.9 Sleep disorder, unspecified; I10 Essential (primary) hypertension; E87.6 Hypokalemia; D72.819 Decreased white blood cell count, unspecified; D64.9 Anemia, unspecified; J98.11 Atelectasis; Z89.612 Acquired absence of left leg above knee; Y92.128 Other place in nursing home as the place of occurrence of the external cause
CPT/HCPCS: 36415; 71045; 83880; 84484; 93005; 99284

== ENCOUNTER 2019-12-18 18:29 | Emergency (ER) | payer MEDICARE, MEDICAID ==
[~2019-12-18] VITALS: Ht 177.8 cm; Wt 64.0 kg
[~2019-12-18 18:29] MED LIST changes: -ACET-2178 PO; -ASPI-1159 PO; +ASPI-1497 PO; +TOPUD PO
[2019-12-18 19:48] VITALS: BP 155/90
[2019-12-18 20:28] LABS: HEMATOCRIT. 35.5 % (42.0-52.0); MEAN CORPUSCULAR HEMOGLOBIN 33.7 pg (28.0-32.0); MEAN CORPUSCULAR VOLUME 99.8 fL (80.0-94.0); MEAN PLATELET VOLUME 7.1 fl (7.4-10.4); PLATELET 265 x1000/uL (130-400); RED BLOOD CELL COUNT 3.55 mill/uL (4.7-6.1); RED CELL DISTRIBUTION WIDTH 13.8 % (11.6-14.6)
[2019-12-18 20:36] LABS: CHLORIDE 104 mEq/L (98-107)
[2019-12-18 21:01] LABS: PLATELET ESTIMATE NORMAL
[2019-12-18] MEDS ORDERED: PHENYTOIN 100 MG/4 ML UDC PO ONE (21:15)
[2019-12-18] MEDS ORDERED: PHENYTOIN SODIUM EXTENDED 100MG CAPSULE PO ONE (21:15)
== END 2019-12-18 22:30 | disposition home or self-care (01) ==
LOC: ER 18:29 → CANBEDREQ 23:23
DX: R41.82 Altered mental status, unspecified (principal); G40.909 Epilepsy, unspecified, not intractable, without status epilepticus; I10 Essential (primary) hypertension; J44.9 Chronic obstructive pulmonary disease, unspecified; Z79.82 Long term (current) use of aspirin
CPT/HCPCS: 36415; 71045; 80053; 80185; 82140; 82962; 85025; 93005; 99285

== ENCOUNTER 2020-05-25 08:22 | Emergency (ER) | payer MEDICARE, MEDICAID ==
[~2020-05-25] VITALS: Ht 162.6 cm; Wt 65.0 kg
[2020-05-25] MEDS ORDERED: LEVETIRACETAM 500MG PREMIX 100 ML IV ONE (09:00)
[2020-05-25] MEDS ORDERED: SODIUM CHLORIDE 0.9% 1,000 ML IV ONE (09:00)
[2020-05-25 09:10] LABS: BASOPHILS % 1.4 % (0.0-2.0); EOSINOPHILS % 1.1 % (0.0-5.0); HEMATOCRIT. 38.3 % (42.0-52.0); HEMOGLOBIN. 12.6 g/dL (14.0-18.0); LYMPHOCYTES % 37.3 % (20.0-50.0); MEAN CORPUSCULAR HEMOGLOBIN 34.2 pg (28.0-32.0); MEAN PLATELET VOLUME 7.3 fl (7.4-10.4); NEUTROPHILS % 49.2 % (40.0-76.0); PLATELET 321 x1000/uL (130-400); RED BLOOD CELL COUNT 3.69 mill/uL (4.7-6.1); RED CELL DISTRIBUTION WIDTH 15.2 % (11.6-14.6)
[2020-05-25 09:20] LABS: CHLORIDE 108 mEq/L (98-107)
[2020-05-25] MEDS ORDERED: HYDROCHLOROTHIAZIDE 12.5MG CAPSULE PO ONE (11:45)
[2020-05-25] MEDS ORDERED: AMLODIPINE 10MG TABLET PO ONE (11:45)
[2020-05-25 13:04] LABS: CLARITY URINE CLEAR (CLEAR); COLOR URINE YELLOW (YELLOW); KETONES URINE NEGATIVE (NEGATIVE); LEUKOCYTE ESTERASE URINE NEGATIVE (NEGATIVE); NITRITE URINE NEGATIVE (NEGATIVE); OCCULT BLOOD URINE TRACE (NEGATIVE); PH URINE 7.5 (4.5-8.0); PROTEIN URINE NEGATIVE (NEGATIVE); UROBILINOGEN URINE 0.2 E.U./dL (0.2-1.0)
[2020-05-25 13:46] VITALS: BP 167/94
== END 2020-05-25 13:49 | disposition home or self-care (01) ==
LOC: ER 08:34
DX: G40.909 Epilepsy, unspecified, not intractable, without status epilepticus (principal); I10 Essential (primary) hypertension; J44.1 Chronic obstructive pulmonary disease with (acute) exacerbation; Z79.899 Other long term (current) drug therapy; Z89.9 Acquired absence of limb, unspecified
CPT/HCPCS: 36415; 70450; 71045; 72125; 80053; 81003; 84484; 85025; 93005; 96365; 99285; J1953; J7030

== ENCOUNTER 2021-04-22 07:43 | Emergency (ER) | payer MEDICARE, MEDICAID ==
[~2021-04-22] VITALS: Ht 172.7 cm; Wt 80.0 kg
[2021-04-22] MEDS ORDERED: LEVETIRACETAM 1000MG PREMIX 100 ML IV ONE (08:00)
[2021-04-22 08:42] LABS: CHLORIDE 108 mEq/L (98-107)
[2021-04-22 08:46] LABS: ETHANOL BLOOD < 10 mg/dL
[2021-04-22 09:20] LABS: CLARITY URINE CLEAR (CLEAR); COLOR URINE YELLOW (YELLOW); KETONES URINE NEGATIVE (NEGATIVE); LEUKOCYTE ESTERASE URINE NEGATIVE (NEGATIVE); NITRITE URINE NEGATIVE (NEGATIVE); OCCULT BLOOD URINE NEGATIVE (NEGATIVE); PROTEIN URINE TRACE (NEGATIVE); UROBILINOGEN URINE 0.2 E.U./dL (0.2-1.0)
[2021-04-22 09:32] LABS: *AMPHETAMINES SCREEN URINE NEGATIVE (NEGATIVE); *BARBITURATES SCREEN URINE NEGATIVE (NEGATIVE)
[2021-04-22 09:33] LABS: *BENZODIAZEPINES SCREEN URINE NEGATIVE (NEGATIVE); *COCAINE SCREEN URINE NEGATIVE (NEGATIVE); CANNABINOID URINE SCREEN PRESUMTIVE POSITIVE (NEGATIVE); METHADONE URINE SCREEN NEGATIVE (NEGATIVE); OPIATES URINE SCREEN NEGATIVE (NEGATIVE); PHENCYCLIDINE URINE SCREEN NEGATIVE (NEGATIVE)
[2021-04-22 09:55] LABS: BASOPHILS % 1.2 % (0.0-2.0); EOSINOPHILS % 1.9 % (0.0-5.0); HEMATOCRIT. 41.8 % (42.0-52.0); HEMOGLOBIN. 14.3 g/dL (14.0-18.0); LYMPHOCYTES % 14.5 % (20.0-50.0); MEAN CORPUSCULAR HEMOGLOBIN 34.5 pg (28.0-32.0); MEAN CORPUSCULAR VOLUME 101.2 fL (80.0-94.0); MEAN PLATELET VOLUME 7.2 fl (7.4-10.4); MONOCYTES % 8.8 % (2.0-8.0); NEUTROPHILS % 73.6 % (40.0-76.0); PLATELET 339 x1000/uL (130-400); RED BLOOD CELL COUNT 4.13 mill/uL (4.7-6.1)
[2021-04-22] MEDS ORDERED: LEVETIRACETAM 500MG TABLET PO ONE (10:00)
[2021-04-22 14:00] VITALS: BP 189/102
[2021-04-22] MEDS ORDERED: CLONIDINE 0.1MG TABLET PO SCH (14:00)
== END 2021-04-22 14:14 | disposition home or self-care (01) ==
LOC: ER 07:43
DX: R56.9 Unspecified convulsions (principal); I10 Essential (primary) hypertension; J44.1 Chronic obstructive pulmonary disease with (acute) exacerbation; Z79.899 Other long term (current) drug therapy
CPT/HCPCS: 36415; 80053; 80305; 80320; 81003; 82962; 85025; 99284; G0480

== ENCOUNTER 2021-04-28 07:38 | Emergency (ER) | payer MEDICARE, MEDICAID ==
[~2021-04-28] VITALS: Ht 172.7 cm; Wt 69.0 kg
[2021-04-28 08:05] LABS: HEMATOCRIT. 37.7 % (42.0-52.0); MEAN CORPUSCULAR HEMOGLOBIN 34.8 pg (28.0-32.0); MEAN CORPUSCULAR VOLUME 100.8 fL (80.0-94.0); MEAN PLATELET VOLUME 6.9 fl (7.4-10.4); PLATELET 296 x1000/uL (130-400); RED BLOOD CELL COUNT 3.74 mill/uL (4.7-6.1); RED CELL DISTRIBUTION WIDTH 13.8 % (11.6-14.6)
[2021-04-28 08:11] LABS: CHLORIDE 102 mEq/L (98-107)
[2021-04-28 08:15] LABS: ETHANOL BLOOD < 10 mg/dL
[2021-04-28 08:18] LABS: CLARITY URINE CLEAR (CLEAR); COLOR URINE YELLOW (YELLOW); KETONES URINE NEGATIVE (NEGATIVE); LEUKOCYTE ESTERASE URINE NEGATIVE (NEGATIVE); NITRITE URINE NEGATIVE (NEGATIVE); OCCULT BLOOD URINE TRACE (NEGATIVE); PH URINE 7.5 (4.5-8.0); PROTEIN URINE 1+ (NEGATIVE); SPECIFIC GRAVITY URINE 1.005 (1.005-1.030); UROBILINOGEN URINE 0.2 E.U./dL (0.2-1.0)
[2021-04-28 08:30] LABS: PLATELET ESTIMATE NORMAL
[2021-04-28 08:33] LABS: *AMPHETAMINES SCREEN URINE NEGATIVE (NEGATIVE); *BARBITURATES SCREEN URINE NEGATIVE (NEGATIVE); *BENZODIAZEPINES SCREEN URINE NEGATIVE (NEGATIVE)
[2021-04-28 08:34] LABS: *COCAINE SCREEN URINE NEGATIVE (NEGATIVE); CANNABINOID URINE SCREEN PRESUMTIVE POSITIVE (NEGATIVE); METHADONE URINE SCREEN NEGATIVE (NEGATIVE); OPIATES URINE SCREEN NEGATIVE (NEGATIVE); PHENCYCLIDINE URINE SCREEN NEGATIVE (NEGATIVE)
[2021-04-28 17:26] VITALS: BP 145/94
== END 2021-04-28 17:33 ==
LOC: ER 07:47
DX: G40.909 Epilepsy, unspecified, not intractable, without status epilepticus (principal); S00.81XA Abrasion of other part of head, initial encounter; D72.819 Decreased white blood cell count, unspecified; I10 Essential (primary) hypertension; J44.9 Chronic obstructive pulmonary disease, unspecified; Z89.612 Acquired absence of left leg above knee; W01.0XXA Fall on same level from slipping, tripping and stumbling without subsequent striking against object, initial encounter; Y93.89 Activity, other specified; Y92.128 Other place in nursing home as the place of occurrence of the external cause
CPT/HCPCS: 36415; 80053; 80305; 80320; 81003; 82962; 85025; 93005; 99285; G0480

== ENCOUNTER 2021-04-29 07:10 | Emergency (ER) | payer MEDICARE, MEDICAID ==
[~2021-04-29] VITALS: Ht 177.8 cm; Wt 69.0 kg
[2021-04-29] MEDS ORDERED: LEVETIRACETAM 500MG PREMIX 100 ML IV ONE (07:30)
[2021-04-29 07:53] LABS: BASOPHILS % 0.9 % (0.0-2.0); HEMATOCRIT. 44.8 % (42.0-52.0); HEMOGLOBIN. 15.6 g/dL (14.0-18.0); LYMPHOCYTES % 23.2 % (20.0-50.0); MEAN CORPUSCULAR HEMOGLOBIN 35.1 pg (28.0-32.0); MEAN CORPUSCULAR VOLUME 100.6 fL (80.0-94.0); MEAN PLATELET VOLUME 7.3 fl (7.4-10.4); MONOCYTES % 11.3 % (2.0-8.0); NEUTROPHILS % 62.6 % (40.0-76.0); PLATELET 299 x1000/uL (130-400); RED BLOOD CELL COUNT 4.46 mill/uL (4.7-6.1); RED CELL DISTRIBUTION WIDTH 13.8 % (11.6-14.6)
[2021-04-29 08:00] LABS: CHLORIDE 106 mEq/L (98-107)
[2021-04-29 08:59] LABS: CLARITY URINE CLEAR (CLEAR); COLOR URINE YELLOW (YELLOW); KETONES URINE NEGATIVE (NEGATIVE); LEUKOCYTE ESTERASE URINE NEGATIVE (NEGATIVE); NITRITE URINE NEGATIVE (NEGATIVE); OCCULT BLOOD URINE NEGATIVE (NEGATIVE); PROTEIN URINE TRACE (NEGATIVE); SPECIFIC GRAVITY URINE 1.012 (1.005-1.030)
[2021-04-29] MEDS ORDERED: AMLODIPINE 2.5MG TABLET PO ONE (10:00)
[2021-04-29] MEDS ORDERED: ENOXAPARIN 40MG/0.4ML SYR SUBCUT SCH (15:00)
[2021-04-29] MEDS ORDERED: CLONIDINE 0.1MG TABLET PO PRN (16:45)
[2021-04-29] MEDS ORDERED: LEVETIRACETAM 500MG TABLET PO SCH ×2 (21:00)
[2021-04-30 00:28] VITALS: BP 134/79
== END 2021-04-30 00:15 | disposition left against medical advice (07) ==
LOC: ER 07:10 → UNDOADMIN 10:00 → MICUSO 10:00 → ENRESERV 13:08 → CANRESERV 13:08
DX: G40.909 Epilepsy, unspecified, not intractable, without status epilepticus (principal); I10 Essential (primary) hypertension; J44.9 Chronic obstructive pulmonary disease, unspecified; E78.00 Pure hypercholesterolemia, unspecified; Z89.612 Acquired absence of left leg above knee; Z20.822 Contact with and (suspected) exposure to COVID-19
CPT/HCPCS: 36415; 80053; 81003; 85025; 87426; 96365; 99291; J1953

== ENCOUNTER 2021-06-23 07:18 | Emergency (ER) | payer MEDICARE, MEDICAID ==
[~2021-06-23] VITALS: Ht 167.6 cm; Wt 67.0 kg
[2021-06-23] MEDS ORDERED: LEVETIRACETAM 1000MG PREMIX 100 ML IV ONE (08:15)
[2021-06-23 08:43] LABS: CLARITY URINE CLEAR (CLEAR); COLOR URINE YELLOW (YELLOW); KETONES URINE NEGATIVE (NEGATIVE); LEUKOCYTE ESTERASE URINE NEGATIVE (NEGATIVE); NITRITE URINE NEGATIVE (NEGATIVE); OCCULT BLOOD URINE NEGATIVE (NEGATIVE); PH URINE 7.5 (4.5-8.0); PROTEIN URINE TRACE (NEGATIVE); SPECIFIC GRAVITY URINE 1.008 (1.005-1.030); UROBILINOGEN URINE 0.2 E.U./dL (0.2-1.0)
[2021-06-23 08:44] LABS: BASOPHILS % 0.8 % (0.0-2.0); EOSINOPHILS % 0.8 % (0.0-5.0); HEMATOCRIT. 37.8 % (42.0-52.0); HEMOGLOBIN. 13.2 g/dL (14.0-18.0); LYMPHOCYTES % 17.3 % (20.0-50.0); MEAN CORPUSCULAR VOLUME 100.2 fL (80.0-94.0); MEAN PLATELET VOLUME 7.2 fl (7.4-10.4); MONOCYTES % 10.2 % (2.0-8.0); NEUTROPHILS % 70.9 % (40.0-76.0); PLATELET 313 x1000/uL (130-400); RED BLOOD CELL COUNT 3.78 mill/uL (4.7-6.1); RED CELL DISTRIBUTION WIDTH 14.2 % (11.6-14.6)
[2021-06-23 08:51] LABS: CHLORIDE 108 mEq/L (98-107)
[2021-06-23 08:57] LABS: ETHANOL BLOOD < 10 mg/dL
[2021-06-23 08:58] LABS: *AMPHETAMINES SCREEN URINE NEGATIVE (NEGATIVE); *BARBITURATES SCREEN URINE NEGATIVE (NEGATIVE); *BENZODIAZEPINES SCREEN URINE NEGATIVE (NEGATIVE); *COCAINE SCREEN URINE NEGATIVE (NEGATIVE); CANNABINOID URINE SCREEN PRESUMTIVE POSITIVE (NEGATIVE); METHADONE URINE SCREEN NEGATIVE (NEGATIVE); OPIATES URINE SCREEN NEGATIVE (NEGATIVE); PHENCYCLIDINE URINE SCREEN NEGATIVE (NEGATIVE)
[2021-06-23 12:48] VITALS: BP 170/93
== END 2021-06-23 13:33 ==
LOC: ER 07:18
DX: G40.909 Epilepsy, unspecified, not intractable, without status epilepticus (principal); I10 Essential (primary) hypertension; J44.9 Chronic obstructive pulmonary disease, unspecified; Z89.612 Acquired absence of left leg above knee
CPT/HCPCS: 36415; 70450; 80053; 80305; 80320; 81003; 85025; 93005; 96365; 99285; J1953; G0480

== ENCOUNTER 2021-12-11 14:16 | Emergency (ER) | payer MEDICARE, MEDICAID ==
[~2021-12-11] VITALS: Ht 172.7 cm; Wt 55.0 kg
[2021-12-11 15:29] LABS: HEMATOCRIT. 39.6 % (42.0-52.0); HEMOGLOBIN. 13.7 g/dL (14.0-18.0); MEAN CORPUSCULAR HEMOGLOBIN 34.9 pg (28.0-32.0); MEAN CORPUSCULAR VOLUME 100.4 fL (80.0-94.0); MEAN PLATELET VOLUME 6.7 fl (7.4-10.4); PLATELET 301 x1000/uL (130-400); RED BLOOD CELL COUNT 3.94 mill/uL (4.7-6.1); RED CELL DISTRIBUTION WIDTH 14.5 % (11.6-14.6)
[2021-12-11 15:42] LABS: CHLORIDE 102 mEq/L (98-107)
[2021-12-11 15:53] LABS: ETHANOL BLOOD < 10 mg/dL
[2021-12-11 16:08] LABS: CLARITY URINE CLEAR (CLEAR); COLOR URINE YELLOW (YELLOW); PH URINE 7.5 (4.5-8.0); PROTEIN URINE 1+ (NEGATIVE)
[2021-12-11 16:09] LABS: KETONES URINE NEGATIVE (NEGATIVE); LEUKOCYTE ESTERASE URINE NEGATIVE (NEGATIVE); NITRITE URINE NEGATIVE (NEGATIVE); OCCULT BLOOD URINE 1+ (NEGATIVE); UROBILINOGEN URINE 0.2 E.U./dL (0.2-1.0)
[2021-12-11 16:21] LABS: *AMPHETAMINES SCREEN URINE NEGATIVE (NEGATIVE); *BARBITURATES SCREEN URINE NEGATIVE (NEGATIVE); *BENZODIAZEPINES SCREEN URINE NEGATIVE (NEGATIVE); *COCAINE SCREEN URINE NEGATIVE (NEGATIVE); CANNABINOID URINE SCREEN PRESUMTIVE POSITIVE (NEGATIVE); METHADONE URINE SCREEN NEGATIVE (NEGATIVE); OPIATES URINE SCREEN NEGATIVE (NEGATIVE); PHENCYCLIDINE URINE SCREEN NEGATIVE (NEGATIVE)
[2021-12-11 17:00] VITALS: BP 176/97
[2021-12-11 17:07] LABS: PLATELET ESTIMATE NORMAL
== END 2021-12-11 17:05 | disposition home or self-care (01) ==
LOC: ER 14:16
DX: R41.82 Altered mental status, unspecified (principal); J44.9 Chronic obstructive pulmonary disease, unspecified; I10 Essential (primary) hypertension; Z79.899 Other long term (current) drug therapy
CPT/HCPCS: 36415; 71045; 80053; 80305; 80320; 81003; 83880; 84484; 85025; 93005; 99285; G0480

== ENCOUNTER 2021-12-12 18:28 | Emergency (ER) | payer MEDICARE, MEDICAID ==
[~2021-12-12] VITALS: Ht 170.2 cm; Wt 59.0 kg
[2021-12-12] MEDS ORDERED: LEVETIRACETAM 500MG/5ML CUP PO ONE (20:00)
[2021-12-12 21:20] LABS: BASOPHILS % 0.8 % (0.0-2.0); EOSINOPHILS % 0.7 % (0.0-5.0); HEMOGLOBIN. 13.3 g/dL (14.0-18.0); LYMPHOCYTES % 16.6 % (20.0-50.0); MEAN CORPUSCULAR HEMOGLOBIN 34.6 pg (28.0-32.0); MEAN CORPUSCULAR VOLUME 101.3 fL (80.0-94.0); MONOCYTES % 9.8 % (2.0-8.0); NEUTROPHILS % 72.1 % (40.0-76.0); PLATELET 313 x1000/uL (130-400); RED BLOOD CELL COUNT 3.85 mill/uL (4.7-6.1); RED CELL DISTRIBUTION WIDTH 14.6 % (11.6-14.6)
[2021-12-12 21:26] LABS: CHLORIDE 96 mEq/L (98-107)
[2021-12-13] MEDS ORDERED: POTASSIUM CHLORIDE 20MEQ TABLET SR PO SCH (09:00)
[2021-12-13 15:31] VITALS: BP 128/80
== END 2021-12-13 15:35 | disposition home or self-care (01) ==
LOC: ER 18:28
DX: R56.9 Unspecified convulsions (principal); J44.9 Chronic obstructive pulmonary disease, unspecified; F03.90 Unspecified dementia, unspecified severity, without behavioral disturbance, psychotic disturbance, mood disturbance, and anxiety; I10 Essential (primary) hypertension; Z79.899 Other long term (current) drug therapy
CPT/HCPCS: 36415; 80053; 82962; 85025; 99285

== ENCOUNTER 2021-12-30 11:47 | Emergency (ER) | payer MEDICARE, MEDICAID ==
[~2021-12-30] VITALS: Ht 172.7 cm; Wt 64.0 kg
[2021-12-30] MEDS ORDERED: LEVETIRACETAM 500MG TABLET PO ONE (13:45)
[2021-12-31 08:08] VITALS: BP 157/98
== END 2021-12-31 08:39 ==
LOC: ER 12:01
DX: G40.909 Epilepsy, unspecified, not intractable, without status epilepticus (principal); I10 Essential (primary) hypertension; J44.9 Chronic obstructive pulmonary disease, unspecified; F03.90 Unspecified dementia, unspecified severity, without behavioral disturbance, psychotic disturbance, mood disturbance, and anxiety; Z89.612 Acquired absence of left leg above knee
CPT/HCPCS: 93005; 99283

== ENCOUNTER 2022-04-17 11:01 | Inpatient (IN) | payer MEDICARE, MEDICAID ==
[~2022-04-17] VITALS: Ht 167.6 cm; Wt 52.6 kg
[2022-04-17] MEDS ORDERED: SODIUM CHLORIDE 0.9% 1,000 ML IV ONE (13:45)
[2022-04-17 15:15] LABS: BASOPHILS % 0.3 % (0.0-2.0); EOSINOPHILS % 0.2 % (0.0-5.0); HEMATOCRIT. 38.3 % (42.0-52.0); HEMOGLOBIN. 13.1 g/dL (14.0-18.0); MEAN CORPUSCULAR VOLUME 99.5 fL (80.0-94.0); MEAN PLATELET VOLUME 6.8 fl (7.4-10.4); MONOCYTES % 11.6 % (2.0-8.0); NEUTROPHILS % 72.9 % (40.0-76.0); PLATELET 564 x1000/uL (130-400); RED BLOOD CELL COUNT 3.85 mill/uL (4.7-6.1); RED CELL DISTRIBUTION WIDTH 14.4 % (11.6-14.6)
[2022-04-17 15:21] LABS: INR 1.1; PROTHROMBIN TIME 11.9 sec (9.6-11.0)
[2022-04-17 15:31] LABS: CHLORIDE 106 mEq/L (98-107)
[2022-04-18 03:42] VITALS: BP 101/66
[2022-04-18] MEDS ORDERED: ACETAMINOPHEN 325MG TABLET PO PRN ×2 (04:45→09:15)
[2022-04-18] MEDS ORDERED: POTASSIUM CHLORIDE 20MEQ TABLET SR PO NR ×2 (04:45→11:00)
[2022-04-18] MEDS: SODIUM CHLORIDE 0.9% 1,000 ML IV SCH ×2 (05:52→17:53)
[2022-04-18 08:00] VITALS: BP 114/80
[2022-04-18] MEDS ORDERED: ONDANSETRON HCL 4MG/2ML INJ IV PRN (09:15)
[2022-04-18] MEDS: DOCUSATE SODIUM 250MG CAPSULE PO SCH (09:38)
[2022-04-18] MEDS: FAMOTIDINE 20MG TABLET PO SCH ×2 (09:39→17:51)
[2022-04-18] MEDS: ENOXAPARIN 40MG/0.4ML SYR SUBCUT SCH (09:39)
[2022-04-18 10:46] LABS: BASOPHILS % 0.6 % (0.0-2.0); EOSINOPHILS % 0.7 % (0.0-5.0); HEMATOCRIT. 36.9 % (42.0-52.0); HEMOGLOBIN. 12.3 g/dL (14.0-18.0); LYMPHOCYTES % 18.2 % (20.0-50.0); MEAN CORPUSCULAR HEMOGLOBIN 33.8 pg (28.0-32.0); MEAN CORPUSCULAR VOLUME 101.4 fL (80.0-94.0); MEAN PLATELET VOLUME 6.6 fl (7.4-10.4); MONOCYTES % 13.5 % (2.0-8.0); PLATELET 532 x1000/uL (130-400); RED BLOOD CELL COUNT 3.64 mill/uL (4.7-6.1); RED CELL DISTRIBUTION WIDTH 14.4 % (11.6-14.6)
[2022-04-18 11:03] LABS: CHLORIDE 113 mEq/L (98-107)
[2022-04-18 12:00] VITALS: BP 109/68
[2022-04-18 16:00] VITALS: BP 125/72
[2022-04-18 20:00] VITALS: BP 127/73
[2022-04-19 04:00] VITALS: BP 109/80
[2022-04-19] MEDS: SODIUM CHLORIDE 0.9% 1,000 ML IV SCH (06:46)
[2022-04-19 08:00] VITALS: BP 117/72
[2022-04-19] MEDS ORDERED: FLUOXETINE HCL 10 MG CAPSULE PO SCH (09:00)
[2022-04-19] MEDS: DOCUSATE SODIUM 250MG CAPSULE PO SCH (09:11)
[2022-04-19] MEDS: FAMOTIDINE 20MG TABLET PO SCH (09:11)
[2022-04-19] MEDS: ENOXAPARIN 40MG/0.4ML SYR SUBCUT SCH (09:13)
[2022-04-19 12:00] VITALS: BP 110/62
[2022-04-19 16:00] VITALS: BP 122/67
[2022-04-19 16:02] LABS: CLARITY URINE CLEAR (CLEAR); COLOR URINE YELLOW (YELLOW); KETONES URINE NEGATIVE (NEGATIVE); LEUKOCYTE ESTERASE URINE NEGATIVE (NEGATIVE); NITRITE URINE NEGATIVE (NEGATIVE); OCCULT BLOOD URINE NEGATIVE (NEGATIVE); PH URINE 5.5 (4.5-8.0); PROTEIN URINE NEGATIVE (NEGATIVE); SPECIFIC GRAVITY URINE 1.032 (1.005-1.030)
[2022-04-19 17:06] VITALS: BP 122/67
== END 2022-04-19 17:20 | DRG 640 ==
LOC: ER 11:01 → EDBEDREQ 19:11 → MICUSO 19:15 → 6EST 04-18 03:42
PROVIDERS: ADMIT Internal Medicine; ATTEND Internal Medicine
DX: E87.6 Hypokalemia (principal); N17.0 Acute kidney failure with tubular necrosis; F32.9 Major depressive disorder, single episode, unspecified; G40.909 Epilepsy, unspecified, not intractable, without status epilepticus; I10 Essential (primary) hypertension; J44.9 Chronic obstructive pulmonary disease, unspecified; Z20.822 Contact with and (suspected) exposure to COVID-19; F03.90 Unspecified dementia, unspecified severity, without behavioral disturbance, psychotic disturbance, mood disturbance, and anxiety; K59.00 Constipation, unspecified; Z89.612 Acquired absence of left leg above knee; Z79.899 Other long term (current) drug therapy
CPT/HCPCS: 36415; 71045; 74176; 80048; 80053; 81003; 85025; 87426; 97162; 99285; C9803; J1650; J7030

== ENCOUNTER 2023-01-09 13:01 | Emergency (ER) | payer MEDICARE, MEDICAID ==
[~2023-01-09] VITALS: Ht 167.6 cm; Wt 73.0 kg
[2023-01-09 13:02] VITALS: O2SAT 99
[2023-01-09 15:53] LABS: CLARITY URINE CLEAR (CLEAR); COLOR URINE YELLOW (YELLOW); GLUCOSE URINE NEGATIVE (NEGATIVE); KETONES URINE NEGATIVE (NEGATIVE); LEUKOCYTE ESTERASE URINE NEGATIVE (NEGATIVE); NITRITE URINE NEGATIVE (NEGATIVE); OCCULT BLOOD URINE NEGATIVE (NEGATIVE); PH URINE 7.5 (4.5-8.0); PROTEIN URINE NEGATIVE (NEGATIVE); SPECIFIC GRAVITY URINE 1.012 (1.005-1.030); UROBILINOGEN URINE 0.2 E.U./dL (0.2-1.0)
[2023-01-09 16:39] LABS: *AMPHETAMINES SCREEN URINE NEGATIVE (NEGATIVE); *BARBITURATES SCREEN URINE NEGATIVE (NEGATIVE); *BENZODIAZEPINES SCREEN URINE NEGATIVE (NEGATIVE); *COCAINE SCREEN URINE NEGATIVE (NEGATIVE); CANNABINOID URINE SCREEN PRESUMPTIVE POSITIVE (NEGATIVE); ECSTASY MDMA SCREEN URINE NEGATIVE (NEGATIVE); METHADONE URINE SCREEN Neg (NEGATIVE); OPIATES URINE SCREEN NEGATIVE (NEGATIVE); PHENCYCLIDINE URINE SCREEN NEGATIVE (NEGATIVE)
[2023-01-09 16:40] LABS: ALANINE AMINOTRANSFERASE 12 IU/L (10-49); ALBUMIN 3.9 g/dL (3.2-4.8); ASPARTATE AMINOTRANSFERASE 26 IU/L (<34); BILIRUBIN TOTAL 0.4 mg/dL (0.1-1.0); CALCIUM 9.9 mg/dL (8.7-10.4); CARBON DIOXIDE 24 mEq/L (21-32); CHLORIDE 109 mEq/L (98-107); CREATININE 0.8 mg/dL (0.6-1.3); GLUCOSE 82 mg/dL (70-105); POTASSIUM 3.7 mEq/L (3.5-5.1); PROTEIN TOTAL 6.7 g/dL (6.0-8.3); SODIUM 141 mEq/L (136-145); TROPONIN I HIGH SENSITIVITY 5 ng/L (3.0-53)
[2023-01-09 16:50] LABS: ETHANOL BLOOD < 10 mg/dL (<10); UREA NITROGEN BLOOD < 5 mg/dL (9-23)
[2023-01-09 17:39] LABS: BASOPHILS % 0.9 % (0.0-2.0); DIFFERENTIAL COMMENT 0; EOSINOPHILS % 1.2 % (0.0-5.0); LYMPHOCYTES % 22.2 % (20.0-50.0); MEAN CORPUSCULAR HEMOGLOBIN 34.3 pg (28.0-32.0); MEAN CORPUSCULAR HGB CONC 33.4 g/dL (31.0-37.0); MEAN CORPUSCULAR VOLUME 102.6 fL (80.0-94.0); MEAN PLATELET VOLUME 7.4 fl (7.4-10.4); MONOCYTES % 10.9 % (2.0-8.0); NEUTROPHILS % 64.8 % (40.0-76.0); PLATELET 336 x1000/uL (130-400); RED CELL DISTRIBUTION WIDTH 14.6 % (11.6-14.6); WHITE BLOOD COUNT 5.8 x1000/uL (4.5-11.0)
[2023-01-09 17:56] LABS: TROPONIN I HIGH SENSITIVITY 5 ng/L (3.0-53)
[2023-01-09 22:37] LABS: TROPONIN I HIGH SENSITIVITY 5 ng/L (3.0-53)
[2023-01-10 09:40] VITALS: BP 132/80; PULSE 92; RESP 16; TEMP 98.2
== END 2023-01-10 09:49 ==
LOC: ER 14:44
DX: R56.9 Unspecified convulsions (principal); I10 Essential (primary) hypertension; E11.9 Type 2 diabetes mellitus without complications; Z79.899 Other long term (current) drug therapy
CPT/HCPCS: 36415; 71045; 80053; 80305; 80320; 81003; 84484; 85025; 93005; 99285; G0480

== ENCOUNTER 2024-03-10 19:01 | Emergency (ER) | payer MEDICARE, MEDICAID ==
[~2024-03-10] VITALS: Ht 180.3 cm; Wt 74.0 kg
[~2024-03-10 19:01] MED LIST changes: -DOCU-150 PO; +DOCU-422 PO
[2024-03-10 19:07] VITALS: O2SAT 97
[2024-03-10] MEDS: SODIUM CHLORIDE 0.9% (SEPSIS BOLUS) IV ONE (19:15)
[2024-03-10] MEDS: PIPERACILLIN/TAZO 3.375G/50ML 50 ML IV ONE (20:37)
[2024-03-10] MEDS: LEVETIRACETAM 500MG PREMIX 100 ML IV ONE ×2 (20:37)
[2024-03-10] MEDS: VANCOMYCIN 1G PREMIX 200 ML IV ONE (20:37)
[2024-03-10 20:47] LABS: BASOPHILS % 0.6 % (0.0-2.0); DIFFERENTIAL COMMENT 0; EOSINOPHILS % 0.2 % (0.0-5.0); HEMATOCRIT. 38.7 % (42.0-52.0); HEMOGLOBIN. 13.2 g/dL (14.0-18.0); LYMPHOCYTES % 14.1 % (20.0-50.0); MEAN CORPUSCULAR HEMOGLOBIN 34.7 pg (28.0-32.0); MEAN CORPUSCULAR HGB CONC 34.1 g/dL (31.0-37.0); MEAN CORPUSCULAR VOLUME 101.6 fL (80.0-94.0); MEAN PLATELET VOLUME 7.1 fl (7.4-10.4); MONOCYTES % 9.8 % (2.0-8.0); NEUTROPHILS % 75.3 % (40.0-76.0); PLATELET 300 x1000/uL (130-400); RED CELL DISTRIBUTION WIDTH 14.7 % (11.6-14.6); WHITE BLOOD COUNT 6.5 x1000/uL (4.5-11.0)
[2024-03-10 20:57] LABS: PARTIAL THROMBOPLASTIN TIME 24.7 sec (23.4-31.0); PROTHROMBIN TIME 10.9 sec (9.6-11.0)
[2024-03-10 21:08] LABS: CHLORIDE 101 mEq/L (98-107); POTASSIUM 3.5 mEq/L (3.5-5.1); SODIUM 134 mEq/L (136-145)
[2024-03-10 21:09] LABS: CARBON DIOXIDE 21 mEq/L (21-32)
[2024-03-10 21:14] LABS: GLUCOSE 84 mg/dL (70-105); UREA NITROGEN BLOOD 22 mg/dL (9-23)
[2024-03-10 21:16] LABS: ALANINE AMINOTRANSFERASE 14 IU/L (10-49); ALBUMIN 4.8 g/dL (3.2-4.8); ASPARTATE AMINOTRANSFERASE 33 IU/L (<34); BILIRUBIN DIRECT 0.3 mg/dL (<=3.0); LACTIC ACID 2.4 mmol/L (0.4-2.0)
[2024-03-10 21:17] LABS: BILIRUBIN TOTAL 0.9 mg/dL (0.1-1.0); PROTEIN TOTAL 8.4 g/dL (6.0-8.3)
[2024-03-10 21:18] LABS: CREATININE 2.2 mg/dL (0.6-1.3); TROPONIN I HIGH SENSITIVITY < 4 ng/L (3.0-53)
[2024-03-10] MEDS: ASPIRIN 325MG EC TABLET PO ONE (22:00)
[2024-03-10] MEDS ORDERED: DOCUSATE SODIUM 100MG CAPSULE PO PRN (23:45)
[2024-03-10] MEDS ORDERED: ACETAMINOPHEN 325MG TABLET PO PRN ×2 (23:45)
[2024-03-10] MEDS ORDERED: CLONIDINE 0.1MG TABLET PO PRN (23:45)
[2024-03-10] MEDS ORDERED: MAGNESIUM/ALUMINUM HYDROXIDE/SIMETHICONE 30ML UDC PO PRN (23:45)
[2024-03-10] MEDS ORDERED: IPRATROPIUM/ALBUTEROL 0.5-3(2.5)MG/3ML NEB HHN PRN (23:45)
[2024-03-10] MEDS ORDERED: ONDANSETRON HCL 4MG/2ML INJ IV PRN (23:45)
[2024-03-10] MEDS ORDERED: GUAIFENESIN 200MG/10ML SUGAR FREE UDC PO PRN (23:45)
[2024-03-11] MEDS: SODIUM CHLORIDE 0.9% 1,000 ML IV SCH (00:30)
[2024-03-11] MEDS: SODIUM CHLORIDE 0.9% 500 ML IV ONE (00:45)
[2024-03-11 02:16] LABS: CLARITY URINE CLEAR (CLEAR); COLOR URINE YELLOW (YELLOW); GLUCOSE URINE NEGATIVE (NEGATIVE); KETONES URINE NEGATIVE (NEGATIVE); LEUKOCYTE ESTERASE URINE NEGATIVE (NEGATIVE); NITRITE URINE NEGATIVE (NEGATIVE); OCCULT BLOOD URINE NEGATIVE (NEGATIVE); PH URINE 5.5 (4.5-8.0); PROTEIN URINE NEGATIVE (NEGATIVE); UROBILINOGEN URINE 0.2 E.U./dL (0.2-1.0)
[2024-03-11] MEDS ORDERED: ASPIRIN 81MG TABLET PO SCH (02:30)
[2024-03-11] MEDS: DICLOFENAC SODIUM 75MG DR TABLET PO NR (03:12)
[2024-03-11] MEDS: ASPIRIN 325MG EC TABLET PO NR (03:17)
[2024-03-11 03:30] LABS: *AMPHETAMINES SCREEN URINE NEGATIVE (NEGATIVE); *BARBITURATES SCREEN URINE NEGATIVE (NEGATIVE); *BENZODIAZEPINES SCREEN URINE NEGATIVE (NEGATIVE); *COCAINE SCREEN URINE NEGATIVE (NEGATIVE); CANNABINOID URINE SCREEN PRESUMPTIVE POSITIVE (NEGATIVE); ECSTASY MDMA SCREEN URINE NEGATIVE (NEGATIVE); METHADONE URINE SCREEN NEGATIVE (NEGATIVE); OPIATES URINE SCREEN NEGATIVE (NEGATIVE); PHENCYCLIDINE URINE SCREEN NEGATIVE (NEGATIVE)
[2024-03-11 09:30] VITALS: BP 104/60; PULSE 73; RESP 14; TEMP 36.66960; O2SAT 97
[2024-03-11] MEDS: ENOXAPARIN 80MG/0.8ML SYR SUBCUT SCH (10:46)
[2024-03-11] MEDS: ASPIRIN 81MG TABLET PO SCH ×2 (10:46)
[2024-03-11] MEDS: LEVETIRACETAM 500MG/5ML CUP PO SCH (10:46)
[2024-03-11] MEDS ORDERED: ATORVASTATIN CALCIUM 10MG TABLET PO SCH (21:00)
[2024-03-18] MEDS ORDERED: GABA-1180 MT (00:27)
[2024-03-18] MEDS ORDERED: LOSA1TAB34 MT (00:27)
[2024-03-18] MEDS ORDERED: MULT-379 MT (00:27)
[2024-03-18] MEDS ORDERED: LEVE10006 MT (00:27)
[2024-03-18] MEDS ORDERED: SENN-362 MT (00:27)
== END 2024-03-11 13:24 | disposition left against medical advice (07) ==
LOC: ER 19:01 → CANBEDREQ 03-11 13:24 → ER 03-11 13:24
DX: A41.9 Sepsis, unspecified organism (principal); R65.20 Severe sepsis without septic shock; R55 Syncope and collapse; F03.90 Unspecified dementia, unspecified severity, without behavioral disturbance, psychotic disturbance, mood disturbance, and anxiety; G40.909 Epilepsy, unspecified, not intractable, without status epilepticus; I11.0 Hypertensive heart disease with heart failure; I50.9 Heart failure, unspecified; Z79.82 Long term (current) use of aspirin; Z79.899 Other long term (current) drug therapy; Z86.73 Personal history of transient ischemic attack (TIA), and cerebral infarction without residual deficits; Z89.612 Acquired absence of left leg above knee; Z99.3 Dependence on wheelchair
CPT/HCPCS: 99291; 96365; 96366; 70450; 71045; 96361; 80076; 80048; 83880; 83605; 85025; 85610; 85730; 87040; 84484; 36415; 84145; 93005; 96368; 93970; 80305; 87086; 96372; 81003; J1953; J2543; J3370; J7030; J1650; 92950

== ENCOUNTER 2024-05-04 12:56 | Emergency (ER) | payer MEDICARE, MEDICAID ==
[~2024-05-04] VITALS: Ht 165.1 cm; Wt 65.0 kg
[~2024-05-04 12:56] MED LIST changes: -ACET1TAB12 PO; -ASPI-1497 PO; -CLON0.1T PO; -DOCU-422 PO; +GABA-1180 MT; -HYDR-523 PO; -HYDR12.529 PO; -IBUP-2321 PO; -IPRA3AMP9 IH; -LEVE1000 PO; +LEVE10006 MT; -LORA1TAB PO; +LOSA1TAB34 MT; +MULT-379 MT; -ONDA4TAB5 PO; +SENN-362 MT; -TOPUD PO
[2024-05-04 13:01] VITALS: O2SAT 98
[2024-05-04] MEDS ORDERED: LEVETIRACETAM 100MG/ML ORAL SYR PO ONE (14:45)
[2024-05-04] MEDS ORDERED: LIDOCAINE HCL/EPINEPHRINE 1%-EPI 1:100,000 10ML VIAL INFIL ONE (14:45)
[2024-05-04] MEDS: LEVETIRACETAM 500MG/5ML CUP PO SCH (15:30)
[2024-05-04 18:27] LABS: DIFFERENTIAL COMMENT 0; EOSINOPHILS % 1.2 % (0.0-5.0); HEMOGLOBIN. 13.4 g/dL (14.0-18.0); LYMPHOCYTES % 21.9 % (20.0-50.0); MEAN CORPUSCULAR HEMOGLOBIN 33.7 pg (28.0-32.0); MEAN CORPUSCULAR HGB CONC 32.6 g/dL (31.0-37.0); MEAN CORPUSCULAR VOLUME 103.5 fL (80.0-94.0); MEAN PLATELET VOLUME 6.8 fl (7.4-10.4); MONOCYTES % 10.5 % (2.0-8.0); NEUTROPHILS % 65.4 % (40.0-76.0); PLATELET 287 x1000/uL (130-400); RED BLOOD CELL COUNT 3.96 mill/uL (4.7-6.1); RED CELL DISTRIBUTION WIDTH 14.7 % (11.6-14.6); WHITE BLOOD COUNT 5.5 x1000/uL (4.5-11.0)
[2024-05-04 18:32] LABS: CHLORIDE 103 mEq/L (98-107); POTASSIUM 4.7 mEq/L (3.5-5.1); SODIUM 137 mEq/L (136-145)
[2024-05-04 18:33] LABS: CALCIUM 10.7 mg/dL (8.7-10.4); CARBON DIOXIDE 23 mEq/L (21-32)
[2024-05-04 18:38] LABS: CREATININE 0.7 mg/dL (0.6-1.3); GLUCOSE 90 mg/dL (70-105); TROPONIN I HIGH SENSITIVITY 7 ng/L (3.0-53); UREA NITROGEN BLOOD 9 mg/dL (9-23)
[2024-05-04 18:40] LABS: ALANINE AMINOTRANSFERASE 64 IU/L (10-49); ALBUMIN 4.1 g/dL (3.2-4.8); ASPARTATE AMINOTRANSFERASE 46 IU/L (<34); BILIRUBIN TOTAL 1.2 mg/dL (0.1-1.0); PROTEIN TOTAL 7.7 g/dL (6.0-8.3)
[2024-05-04 21:44] VITALS: BP 121/66; PULSE 68; RESP 16; TEMP 36.8; O2SAT 98
== END 2024-05-04 22:04 ==
LOC: ER 13:26
DX: S01.81XA Laceration without foreign body of other part of head, initial encounter (principal); R56.9 Unspecified convulsions; E11.9 Type 2 diabetes mellitus without complications; I10 Essential (primary) hypertension; Z79.899 Other long term (current) drug therapy; Z86.73 Personal history of transient ischemic attack (TIA), and cerebral infarction without residual deficits; W19.XXXA Unspecified fall, initial encounter; Y93.89 Activity, other specified; Y92.89 Other specified places as the place of occurrence of the external cause; Y99.8 Other external cause status
CPT/HCPCS: 12013; 36415; 80053; 84484; 85025; 93005; 99284; 99285